=== PATIENT | male | born 1950 | race Caucasian/White ===

== ENCOUNTER → 2016-11-08 | Outpatient (REF) | payer MEDICARE ==
[~2016-11-08] MED LIST: AMOX500C PO; ASPI325T PO; CARV6.25 PO; CIPR500T89 PO; CLOP75TA2 PO; CO Q100C10 PO; COLA100C PO; ECOT81TA2 PO; FISH120012 PO; FISH5CAP PO; FLAG500T PO; LIPI80TA PO; LISI-538 PO; LISI40TAB PO; MIRA3350 PO; NITROPATCH PO; OCUVTAB PO; OSTETAB3 PO; OXYC5CAP28 PO; TRAZ50TA4 PO; TRIC145T PO; VITAMIN B2 PO; ZYLO300T4 PO; tumeric PO
[2016-11-13 00:06] LABS: Lyme Disease IgG/IgM Antibodie <0.91 ISR (0.00-0.90); Lyme Disease IgM Ab Quantitati <0.80 index (0.00-0.79)
== END ==
LOC: M SFHCPLAZ 13:43
PROVIDERS: ATTEND Internal Medicine
DX: M35.3 Polymyalgia rheumatica (principal)
CPT/HCPCS: 36415; 86038; 86200; 86431; 86617; G0463

== ENCOUNTER → 2017-03-19 | Outpatient (CLI) | payer MEDICARE ==
[~2017-03-19] MED LIST changes: -COLA100C PO; +COLA100C3 PO; -ECOT81TA2 PO; +ECOT81TA5 PO; +NITR0.2D TD; +PRED1TABL PO; +VITA100T98 PO
[2017-03-19 08:40] LABS: BASO % 0.6 % (0.0-1.0); EOS # 0.1 K/mm3 (0.0-0.50); EOS % 2.2 % (0.0-3.0); LYMPH # 1.7 K/mm3 (1.5-4.5); LYMPH % 31.6 % (24.0-44.0); MEAN CORPUSCULAR HEMOGLOBIN 33.6 pg (27.0-33.0); MEAN CORPUSCULAR HGB CONC 32.8 g/dl (32.0-36.5); MEAN CORPUSCULAR VOLUME 102.4 fl (80.0-96.0); MONO # 0.4 K/mm3 (0.0-0.8); MONO % 8.1 % (0.0-5.0); NEUTROPHILS % 54.9 % (36.0-66.0); RED CELL DISTRIBUTION WIDTH 14.9 % (11.5-14.5); WHITE BLOOD COUNT 5.4 K/mm3 (4.0-10.0)
== END ==
LOC: M LAB 08:16
PROVIDERS: ATTEND Internal Medicine
DX: M35.3 Polymyalgia rheumatica (principal)

== ENCOUNTER → 2017-03-19 | Outpatient (CLI) | payer MEDICARE ==
--- NOTE | 2017-03-19 17:38 | REP ---
MRI CERVICAL SPINE WITHOUT CONTRAST: 03/19/2017: Clinical history: Neck pain. Technique: Sagittal T1, T2 and STIR images with axial T1-T2 sequences provided. Clinical history: Headaches, increased neck pain. Findings: Sagittal images show fusion at C3-4. Partial fusion at C2-3, C5-6 and C6-7 disc space narrowing at C4-5 and C7-T1. There are anterior osteophytes greatest at C4-5 but present at all levels from C3-4 through C7-T1. Craniocervical junction shows ample subarachnoid space with no cerebellar tonsillar ectopia. Cervical cord shows no intrinsic signal abnormality, syrinx, atrophy or mass. At C2-3 there is a left paracentral left lateral disc osteophyte complex abutting the ventral cord surface along the ventral lateral aspect. The cross-sectional area of the canal was adequate. The right foramen is ample. The left foramen shows some stenosis due to combined factors. At 3-4. There is also posterior static ridging with left paracentral left lateral disc osteophyte complex abutting and flattening the ventral cord surface on the left side causing some central canal stenosis and foraminal encroachment on the left where the right foramen is adequate. At C4-5 posterior osteophytic ridging with associated disc bulge causes a tight spinal stenosis with the AP canal diameter only 7 mm and no subarachnoid space visible on there is foraminal encroachment bilaterally due to uncinate spurring and facet arthropathy. At C5-6 posterior osteophytic ridging abutting the ventral cord surface and flattening it causing mild central canal stenosis. Foramina adequate on the left marginally adequate on the right. At C6-C7 there is posterior osteophytic ridging bulging and indenting the ventral cord surface causing some central canal stenosis with an AP canal diameter of only 7.8 mm. Foramina are ample on the left and mildly stenotic on the right. At C7-T1 posterior osteophytic ridging with associated disc bulge flattening ventral cord surface causing mild central canal stenosis. Foramina adequate. Impression: 1. Multilevel degenerative disc disease with disc osteophyte complexes at multiple levels with spinal stenosis from C2-3 through C7-T1, greatest at C4-5. Foraminal encroachment at multiple levels bilaterally. No compression deformity. Multiple fused and partially fused levels as described. No myelomalacia. Signed by Amanuel Ramirez MD 03/20/2017 10:09 A
== END ==
LOC: M RAD 14:16
PROVIDERS: ATTEND Internal Medicine
DX: M35.3 Polymyalgia rheumatica (principal); M50.30 Other cervical disc degeneration, unspecified cervical region; M99.71 Connective tissue and disc stenosis of intervertebral foramina of cervical region

== ENCOUNTER 2017-03-26 17:53 | Inpatient (IN) | payer MEDICARE ==
[~2017-03-26] VITALS: Ht 177.8 cm; Wt 127.2 kg
[~2017-03-26 17:53] MED LIST changes: -NITR0.2D TD; -PRED1TABL PO; -VITA100T98 PO
[2017-03-26] MEDS ORDERED: PRED1TABL PO (18:16)
[2017-03-26] MEDS ORDERED: NS 1,000 ML IV ONE ×3 (19:45→21:45)
[2017-03-26 19:55] LABS: ALBUMIN 3.6 GM/DL (3.2-5.2); ALBUMIN/GLOBULIN RATIO 1.06 (1.00-1.93); BILIRUBIN,DIRECT 0.4 MG/DL (0.0-0.2); BILIRUBIN,TOTAL 1.5 MG/DL (0.2-1.0); CREATININE FOR GFR 1.51 MG/DL (0.70-1.30); GLOMERULAR FILTRATION RATE 49.2 (>49)
[2017-03-26 20:03] LABS: MEAN CORPUSCULAR HEMOGLOBIN 33.8 pg (27.0-33.0); MEAN CORPUSCULAR VOLUME 99.5 fl (80.0-96.0); PLATELET COUNT, AUTOMATED 118 k/mm3 (150-450); RED CELL DISTRIBUTION WIDTH 14.4 % (11.5-14.5); WHITE BLOOD COUNT 10.5 K/mm3 (4.0-10.0)
[2017-03-26] MEDS ORDERED: ISOVUE-370 76% 100ML VIAL (Q9967) As Ordered ONE (20:13)
[2017-03-26 20:28] LABS: VENOUS BASE EXCESS 1.3 (-2.0-2.0); VENOUS O2 SATURATION 43.3 % (60.0-80.0); VENOUS PARTIAL PRESSURE CO2 45.2 mmHg (38.0-50.0); VENOUS STANDARD HCO3 24.3 MEQ/L; VENOUS TOTAL CO2 28.1 MEQ/L (24.0-28.0)
[2017-03-26 20:29] LABS: BANDS 4 % (< 11); BASOPHILS 1 % (0-4)
--- NOTE | 2017-03-26 22:00 | REPUSA ---
CLINICAL HISTORY: Back pain and shortness of breath. TECHNIQUE: CT chest with IV contrast. COMPARISON: No pertinent prior studies are available at this time. CT CHEST WITH CONTRAST: Pulmonary arteries: Patent, without emboli. Lungs: No pneumothorax, infiltrate, masses or effusion. Heart: Normal size. No significant effusion. Aorta: Normal caliber, without aneurysm or dissection. Mediastinum and delilah: No lymphadenopathy. Bony thorax: Median sternotomy. Thoracic spondylosis Limited upper abdomen: No acute findings. IMPRESSION: No evidence of pulmonary embolism. No acute thoracic process.
[2017-03-26 22:08] LABS: MAGNESIUM LEVEL 1.6 MG/DL (1.8-2.4)
--- NOTE | 2017-03-26 22:10 | REPUSA ---
CLINICAL HISTORY: Hypotension and vomiting. TECHNIQUE: CT abdomen and pelvis following administration of IV contrast. COMPARISON: No pertinent prior studies are available at this time. CT ABDOMEN WITH CONTRAST: Lung bases: No lung base infiltrate or effusion. Liver: 20.6 cm length. No intrahepatic ductal dilation. Gallbladder: Normally distended. Small layering stones. Pancreas: No pancreatic duct dilation. Bowel loops: Nondistended. Spleen: 11.7 cm length. Adrenals: Normal size. Kidneys: No stones or hydronephrosis. Multiple left renal cysts, largest measuring 7 and 6 cm each Aorta: Atherosclerotic irregularity, with infrarenal ectasia measuring up to 2.9 cm. Peritoneum: No free air. Anterior abdominal wall: Multiple fatty omental hernias, without containing bowel. Lumbar spine: Degenerative spondylotic changes at multiple levels. Disc osteophyte complexes at L2-3 and L3-4 produce central canal stenosis. CT PELVIS WITH CONTRAST: Colon: Multiple colonic diverticula without evidence of diverticulitis. Appendix: Normal appendix is seen. Bladder: Normally distended. Pelvic organs: Prostate 4.7 cm diameter. Peritoneum: No fluid. Hips: Right hip arthroplasty. Inguinal: Small fatty left inguinal hernia. IMPRESSION: 1. Cholelithiasis without CT evidence of cholecystitis. 2. Borderline hepatosplenomegaly. Correlate with hepatic enzymes. 3. Aortic atherosclerosis, with tortuosity and ectasia measuring up to 2.9 cm. 4. Multiple anterior abdominal wall fatty omental hernias, without containing bowel. 5. Diverticulosis without convincing evidence of diverticulitis.
[2017-03-26] MEDS ORDERED: LR 1,000 ML IV ONE (22:45)
[2017-03-27] MEDS ORDERED: VITA100T98 PO (03:35)
[2017-03-27] MEDS ORDERED: PRED1TABL PO (03:35)
[2017-03-27] MEDS ORDERED: NITR0.2D TD (03:35)
[2017-03-27 04:00] VITALS: BP 120/77; PULSE 66
[2017-03-27] MEDS ORDERED: MIRALAX *UNIT DOSE* 17GM PACKET PO PRN (05:45)
--- NOTE | 2017-03-27 06:01 | HPE ---
DATE OF ADMISSION: 03/27/2017 REASON FOR ADMISSION: Weakness, hypotension. PRIMARY CARE PROVIDER: Dr. Peng METAL WEATHER STRIPPER: Dr. Butler HISTORY OF PRESENT ILLNESS: The patient is a 66-year-old male with a history of obstructive sleep apnea on C-PAP, diabetes, hypertension, coronary artery disease, diverticulitis and gout, presented to the emergency room complaining of weakness and sweats and chills and pain in his back. He had nausea and two episodes of vomiting at home and then one in the emergency room. He denies any chest pain or shortness of breath. In the emergency room, the patient underwent CT of the chest, as well as abdomen and pelvis. CT of the chest showed no evidence of pulmonary emboli (PE) and no acute thoracic process. CT abdomen and pelvis were also negative, showing a cholelithiasis without cholecystitis, borderline hepatosplenomegaly, aortic arthrosclerosis with tortuosity and ectasia measuring 2.9, diverticulosis without diverticulitis. The patient was also found to have low blood pressure as low as 70/46. He was given 2 liters of fluid boluses. Echocardiogram was also ordered and done STAT in the emergency room, read by Dr. Torres, who was steam conditioning operator tonight. He commented that the patient had aortic stenosis and that it has worsened slightly from prior echocardiogram, but he did not feel like the patient needed to be transferred, but rather he could be admitted and be observed for his hypotension and symptoms. By the time I examined the patient, he had no more symptoms. He denied any back pain. Denied any shortness of breath or chest pain. He had no nausea, no vomiting, no chills, no fevers. He had already received fluid boluses, lactated Ringer's. His blood pressure at the time of my exam was 130/82 with a pulse of 72. He was afebrile, temperature of 98.3, saturating 96% on room air. REVIEW OF SYSTEMS: 12-point review of systems was obtained all of which was negative except for those mentioned above. PAST MEDICAL HISTORY: Significant for obstructive sleep apnea on C-PAP, type 2 diabetes, hypertension, coronary artery disease (CAD), diverticulitis, gout PAST SURGICAL HISTORY: Significant for cabbage x2 in 1988 and 1992, stents in 2001, right rotator cuff surgery, right hip surgery and left knee surgery. ALLERGIES: None. SOCIAL HISTORY: The patient denies any tobacco, drinks occasionally. Lives at home with his . HOME MEDICATIONS INCLUDE: - allopurinol 3 mg daily - aspirin 81 mg daily - Lipitor 80 mg at night - carvedilol 6.25 mg by mouth twice a day -CoQ10 100 mg daily - Colace 100 mg daily - fish oil 1400 mg daily - lisinopril 20 mg daily - multivitamin one tablet by mouth daily - Nitro-Dur 0.2 mg transdermal daily as needed for angina - MiraLax 17 grams by mouth twice a day for constipation - prednisone 5 mg daily and 4 mg at night - vitamin D 100 mg by mouth daily - trazodone 50 mg at bedtime. PHYSICAL FINDINGS: VITALS: Temperature 98.30, pulse 73, respiratory rate 20, blood pressure is 143/92, pulse of 97% on room air. HEENT: Pupils equal round react to light accommodation. NECK: Supple. No jugular venous distension (JVD). LUNGS: Clear to auscultation bilaterally. CARDIAC: 3/6 soft systolic murmur appreciated. ABDOMEN: Soft, nontender, nondistended. EXTREMITIES: No clubbing, cyanosis or edema. LABORATORY FINDINGS: Sodium 141, potassium 4, chloride 106, BUN 29, creatinine 1.51, lactic acid 1.7, magnesium 1.6, troponin 0.05, white blood count (WBC) 7.5, hemoglobin 13.8, hematocrit 40.6, platelet count 118. Urinalysis showed 3+ leukoesterase and 65 white blood cells (WBCs), negative for bacteria, pH on ZDG was 7.39. ASSESSMENT/PLAN: 1. Hypertension, unknown etiology at this time, but has resolved. The patient's blood pressure after receiving total of four fluid boluses is now up to 143/92. We will hold the patient's home antihypertensive medications per Dr. Torres's recommendation. The patient is normally on lisinopril and Coreg and will continue to monitor the patient on telemetry CT ruled out aortic dissection, thoracic and abdominal 2. Back pain resolved, unknown etiology at this time. 3. Hypomagnesemia. We will replace and recheck. 4. Aortic stenosis per echocardiogram. The patient has moderate to severe aortic stenosis. He follows up with Dr. Butler normally. We will consult, Dr. Torres agreed has agreed to the see the patient in consultation. 5. History of gout. Continue the patient's home medication. 6. Coronary artery disease status post cabbage and stenting. 7. History of diverticulitis. CT today showed no evidence of diverticulitis 8. Chronic obstructive pulmonary disease (COPD). The patient is normally on C-PAP. We will continue while in the hospital. The patient will be seen by Dr. Marcum in the morning.
[2017-03-27] MEDS ORDERED: MAG SULF 1GM/100ML (MAG RUN) 1 GM in APPROPRIATE DILUENT 1 EA IV ONE (07:30)
[2017-03-27 07:50] LABS: BASO % 0.1 % (0.0-1.0); EOS % 0.4 % (0.0-3.0); LARGE UNSTAINED CELL # 0.1 K/mm3 (0.0-0.4); LYMPH # 1.1 K/mm3 (1.5-4.5); LYMPH % 8.2 % (24.0-44.0); MEAN CORPUSCULAR HGB CONC 33.9 g/dl (32.0-36.5); MEAN CORPUSCULAR VOLUME 100.3 fl (80.0-96.0); MONO # 0.5 K/mm3 (0.0-0.8); MONO % 3.7 % (0.0-5.0); NEUTROPHILS # 10.4 K/mm3 (1.8-7.7); NEUTROPHILS % 86.6 % (36.0-66.0); PLATELET COUNT, AUTOMATED 102 k/mm3 (150-450); WHITE BLOOD COUNT 12.1 K/mm3 (4.0-10.0)
[2017-03-27 08:00] VITALS: BP 105/60
--- NOTE | 2017-03-27 08:10 | ECGEPIP ---
Stationary ECG Study [facility] - ED Test Date: 2017-03-26 Pat Name: HEIKE GARRETT Department: Room: [facility] Gender: M Grinder Hand: ct : 1950 Requested By: Jayjay Bear Order Number: [id number] Reading MD: Angela Leigh Measurements Intervals [place] Rate: 99 P: 48 [place]: 212 QRS: 1 QRSD: 114 T: 236 QT: 337 QTc: 433 Interpretive Statements SINUS RHYTHM WITH FIRST DEGREE AV BLOCK WITH FREQUENT VENTRICULAR PREMATURE COMPLEXES INFERIOR MYOCARDIAL INFARCTION, OF INDETERMINATE AGE MODERATE T-WAVE ABNORMALITY, CONSIDER LATERAL ISCHEMIA LVH INCREASED RATE 05/29/14 Electronically Signed On 03-27-2017 8:09:53 EDT by Angela Leigh
--- NOTE | 2017-03-27 08:11 | ECGEPIP ---
Stationary ECG Study [facility] - ED Test Date: 2017-03-26 Pat Name: HEIKE GARRETT Department: Room: [facility]02 Gender: M Change House Attendant: shayna : 1950 Requested By: MAILE Lezama Order Number: [id number] Reading MD: Angela Leigh Measurements Intervals [place] Rate: 89 P: 49 [place]: 218 QRS: -2 QRSD: 114 T: 238 QT: 336 QTc: 409 Interpretive Statements SINUS RHYTHM WITH FIRST DEGREE AV BLOCK INFERIOR MYOCARDIAL INFARCTION, OF INDETERMINATE AGE MODERATE T-WAVE ABNORMALITY, CONSIDER LATERAL ISCHEMIA DECREASED RATE 03/26/17 Electronically Signed On 03-27-2017 8:11:43 EDT by Angela Leigh
[2017-03-27 08:16] LABS: ALBUMIN 2.7 GM/DL (3.2-5.2); ALBUMIN/GLOBULIN RATIO 0.75 (1.00-1.93); BILIRUBIN,TOTAL 1.4 MG/DL (0.2-1.0); CALCIUM LEVEL 8.1 MG/DL (8.8-10.2); CREATININE FOR GFR 1.37 MG/DL (0.70-1.30); MAGNESIUM LEVEL 1.8 MG/DL (1.8-2.4); POTASSIUM SERUM 3.9 MEQ/L (3.5-5.1); TOTAL PROTEIN 6.3 GM/DL (6.4-8.2)
[2017-03-27] MEDS: ASPIRIN 81 MG ENTERIC TAB PO SCH (09:40)
[2017-03-27] MEDS: DOCUSATE SODIUM 100 MG CAP PO SCH (09:40)
[2017-03-27] MEDS: predniSONE 5 MG TAB PO SCH (09:40)
[2017-03-27] MEDS: OCUVITE 1 TAB PO SCH (10:29)
[2017-03-27] MEDS: ALLOPURINOL 300 MG TAB PO SCH (10:29)
[2017-03-27 12:00] VITALS: BP 141/80
[2017-03-27 16:10] VITALS: BP 107/52
--- NOTE | 2017-03-27 17:03 | IPNPDOC ---
Text Note Date of Service The patient was seen on 03/27/17. NOTE Subjective: Patient is a 66 year old male with a PMHx of HANNY on CPAP, DM2, HTN, CAD s/p CABG (1988, 1992) and stent (2001, 2012), Diverticulosis and Gout who presented to the ER with weakness, sweats, nausea / vomiting and sharp back pain between his shoulder blades. He denied SOB or chest pain. Patient received a CTA chest / abdomen / pelvis that was negative for any acute pathology (no PE or aortic dissection). He was found to be hypotensive in the ER and received 2 L IV fluid hydration and his BP responded appropriately. A STAT echocardiogram was ordered in the ER; it revealed that there was worsening of his aortic stenosis. Upon initial evaluation by the hospitalist, the patient's blood pressure had normalized and his symptoms resolved. Patient was seen and examined at the bedside. Currently he has no symptoms and denies any problems. Objective: Vitals (See below) General: Lying in bed, no acute distress, comfortable, AAOx3 HEENT: NC, AT CVS: RRR, +S1S2, +Systolic murmur Lungs: Fair air entry b/l, -w/r/r Abdomen: Soft, ND, NT, +BSx4 Extremities: +PPx4, - Edema, - Calf tenderness Assessment and plan: 1. s/p Hypotension - possibly 2/2 cardiac etiology - 2/2 severe aortic stenosis , possibly 2/2 hypovolemia - Presented with nausea, vomiting, sweating, chills, and pain between his shoulder blades - Physical currently does not reveal any acute changes - BP has normalized after IV fluid hydration - CTA chest / abdomen / pelvis: no acute pathology (no PE or dissection) - EKG with ischemic changes in lateral leads; no prior EKGs available for comparison - ECHO complete; official report pending - Will trend cardiac enzymes; have been mildly elevated at 0.36 - Will continue to hold Lisinopril and Carvedilol - Cardiology (Dr. Torres) on consult; case was discussed by my college (Dr. Calvillo) and will be seen today 2. Leukocytosis and fever - possibly 2/2 UTI - Fever of 100.7 noted - UA consistent with infection - Urine culture pending - Will order blood cultures - Start Ceftriaxone (Day #0) 3. Hypomagnesemia - s/p supplementation 4. Aortic stenosis 5. Gout 6. CAD s/p CABG and Stents 7. Hx of Diverticulitis 8. HANNY on CPAP - allow home CPAP use 9. DVT prophylaxis - c/w SCDs VS,Fishbone, I+O VS, Fishbone, I+O Laboratory Tests 03/26/17 18:57 Red Blood Count 4.08 L, Mean Corpuscular Volume 99.5 H, Mean Corpuscular Hemoglobin 33.8 H, Mean Corpuscular Hemoglobin Concent 34.0, Red Cell Distribution Width 14.4 03/27/17 07:39 Red Blood Count 3.41 L, Mean Corpuscular Volume 100.3 H, Mean Corpuscular Hemoglobin 34.0 H, Mean Corpuscular Hemoglobin Concent 33.9, Red Cell Distribution Width 15.0 H, Neutrophils (%) (Auto) 86.6 H, Lymphocytes (%) (Auto ) 8.2 L, Monocytes (%) (Auto) 3.7, Eosinophils (%) (Auto) 0.4, Basophils (%) ( Auto) 0.1, Neutrophils # (Auto) 10.4 H, Lymphocytes # (Auto) 1.1 L, Monocytes # (Auto) 0.5, Eosinophils # (Auto) 0.0, Basophils # (Auto) 0.0, Calcium Level 8.1 L, Aspartate Amino Transf (AST/SGOT) 16, Alanine Aminotransferase (ALT/SGPT) 23 , Total Creatine Kinase 146, Alkaline Phosphatase 49, Total Bilirubin 1.4 H, Total Protein 6.3 L, Albumin 2.7 #L Vital Signs Date Time Temp Pulse Resp B/P (MAP) Pulse Ox O2 Delivery O2 Flow Rate FiO2 03/27/17 16:10 100.7 69 18 107/52 (70) 98 Room Air 03/27/17 08:00 2.0 I&O- Last 24 Hours up to 6 AM 03/27/17 06:00 Intake Total 4000 ml Output Total 300 ml Balance 3700 ml DMITRY BASS MD March 27, 2017 17:03
[2017-03-27] MEDS: predniSONE 1 MG TAB PO SCH (19:08)
[2017-03-27] MEDS: ATORVASTATIN 20 MG TAB PO SCH (19:08)
[2017-03-27] MEDS: cefTRIAXone SOD 1 GM in D5W MINI-BAG PLUS 50 ML IV SCH (19:09)
[2017-03-27 20:00] VITALS: BP 104/58
[2017-03-27] MEDS: traZODone 50 MG TAB PO SCH (20:57)
[2017-03-27] MEDS: ACETAMINOPHEN TAB 650MG DOSE (2X325MG) PO PRN (20:57)
[2017-03-28] VITALS (7 sets, daily range): BP systolic 117–137; BP diastolic 67–81
[2017-03-28 05:18] LABS: MEAN CORPUSCULAR HEMOGLOBIN 33.5 pg (27.0-33.0); MEAN CORPUSCULAR HGB CONC 33.5 g/dl (32.0-36.5); MEAN CORPUSCULAR VOLUME 100.1 fl (80.0-96.0); RED CELL DISTRIBUTION WIDTH 14.6 % (11.5-14.5)
[2017-03-28 05:38] LABS: ALBUMIN 2.8 GM/DL (3.2-5.2); ALBUMIN/GLOBULIN RATIO 0.76 (1.00-1.93); ALKALINE PHOSPHATASE 51 U/L (45-117); ALT/SGPT 22 U/L (12-78); ANION GAP 6 MEQ/L (8-16); AST/SGOT 15 U/L (15-37); BLOOD UREA NITROGEN 24 MG/DL (7-18); CALCIUM LEVEL 8.7 MG/DL (8.8-10.2); CARBON DIOXIDE LEVEL 28 MEQ/L (21-32); CHLORIDE LEVEL 110 MEQ/L (98-107); CREATININE FOR GFR 1.25 MG/DL (0.70-1.30); GLOMERULAR FILTRATION RATE > 60.0 (>49); GLUCOSE, FASTING 97 MG/DL (80-110); MAGNESIUM LEVEL 2.1 MG/DL (1.8-2.4); POTASSIUM SERUM 3.8 MEQ/L (3.5-5.1); SODIUM LEVEL 144 MEQ/L (136-145); TOTAL PROTEIN 6.5 GM/DL (6.4-8.2)
[2017-03-28] MEDS: predniSONE 5 MG TAB PO SCH (09:31)
[2017-03-28] MEDS: ALLOPURINOL 300 MG TAB PO SCH (09:31)
[2017-03-28] MEDS: DOCUSATE SODIUM 100 MG CAP PO SCH (09:31)
[2017-03-28] MEDS: ASPIRIN 81 MG ENTERIC TAB PO SCH (09:31)
[2017-03-28] MEDS: OCUVITE 1 TAB PO SCH (09:32)
[2017-03-28] MEDS: ACETAMINOPHEN TAB 650MG DOSE (2X325MG) PO PRN (13:58)
--- NOTE | 2017-03-28 15:22 | IPNPDOC ---
Text Note Date of Service The patient was seen on 03/28/17. NOTE Subjective: Patient is a 66 year old male with a PMHx of HANNY on CPAP, DM2, HTN, CAD s/p CABG (1988, 1992) and stent (2001, 2012), Diverticulosis and Gout who presented to the ER with weakness, sweats, nausea / vomiting and sharp back pain between his shoulder blades. He denied SOB or chest pain. Patient received a CTA chest / abdomen / pelvis that was negative for any acute pathology (no PE or aortic dissection). He was found to be hypotensive in the ER and received 2 L IV fluid hydration and his BP responded appropriately. A STAT echocardiogram was ordered in the ER; it revealed that there was worsening of his aortic stenosis. Upon initial evaluation by the hospitalist, the patient's blood pressure had normalized and his symptoms resolved. Patient was seen and examined at the bedside. He is feeling well currently without any events overnight. Objective: Vitals (See below) General: Lying in bed, no acute distress, comfortable, AAOx3 HEENT: NC, AT CVS: RRR, +S1S2, +Systolic murmur Lungs: Fair air entry b/l, -w/r/r Abdomen: Soft, ND, NT, +BSx4 Extremities: +PPx4, - Edema, - Calf tenderness Assessment and plan: 1. s/p Hypotension - possibly 2/2 cardiac etiology - 2/2 severe aortic stenosis , possibly 2/2 hypovolemia - Presented with nausea, vomiting, sweating, chills, and pain between his shoulder blades - Physical currently does not reveal any acute changes - BP has normalized after IV fluid hydration - CTA chest / abdomen / pelvis: no acute pathology (no PE or dissection) - EKG with ischemic changes in lateral leads; no prior EKGs available for comparison - ECHO complete; official report pending - Cardiac enzymes peaked at 0.36; but have trended down since then - HOLD Lisinopril - Will reintroduce low dose carvedilol with holding parameters - Discussed with Cardiology (Dr. Torres) who will look into outpatient records; will advise of any additional information 2. s/p Leukocytosis and fever - possibly 2/2 UTI - Fever of 100.7 noted - UA consistent with infection - Urine culture and blood culture results pending - Start Ceftriaxone (Day #1) 3. s/p Hypomagnesemia 4. Aortic stenosis - STAT echocardiogram done in the ER was noted to have worsened - official report pending 5. Gout - c/w Allopurinol and Prednisone 6. CAD s/p CABG and Stents - c/w ASA, Atorvastatin, Carvedilol 7. Depression - c/w Trazodone 8. Hx of Diverticulitis 9. HANNY on CPAP - allow home CPAP use 10. DVT prophylaxis - c/w SCDs VS,Fishbone, I+O VS, Fishbone, I+O Laboratory Tests 03/28/17 04:58 Red Blood Count 3.47 L, Mean Corpuscular Volume 100.1 H, Mean Corpuscular Hemoglobin 33.5 H, Mean Corpuscular Hemoglobin Concent 33.5, Red Cell Distribution Width 14.6 H, Calcium Level 8.7 L, Aspartate Amino Transf (AST/SGOT ) 15, Alanine Aminotransferase (ALT/SGPT) 22, Total Creatine Kinase 110, Alkaline Phosphatase 51, Total Bilirubin 1.0, Total Protein 6.5, Albumin 2.8 L Vital Signs Date Time Temp Pulse Resp B/P (MAP) Pulse Ox O2 Delivery O2 Flow Rate FiO2 03/28/17 12:00 98.1 79 18 137/81 (99) 98 Room Air 03/27/17 08:00 2.0 I&O- Last 24 Hours up to 6 AM 03/28/17 06:00 Intake Total 1155 ml Output Total 1100 ml Balance 55 ml DMITRY BASS MD March 28, 2017 15:22
[2017-03-28] MEDS: ATORVASTATIN 20 MG TAB PO SCH (17:46)
[2017-03-28] MEDS: cefTRIAXone SOD 1 GM in D5W MINI-BAG PLUS 50 ML IV SCH (17:46)
[2017-03-28] MEDS: predniSONE 1 MG TAB PO SCH (17:46)
[2017-03-28] MEDS: traZODone 50 MG TAB PO SCH (20:08)
[2017-03-28] MEDS: CARVedilol 3.125 MG TAB PO SCH (20:09)
--- NOTE | 2017-03-28 22:31 | CR ---
DATE OF CONSULTATION: 03/28/2017 REFERRING PROVIDER: Dr. Marcum REASON FOR THE CONSULT: Status post hypotensive episodes, history of coronary artery disease and coronary artery bypass graft (CABG), percutaneous transluminal coronary angioplasty (PTCA)/stent. PRIMARY CARE PROVIDER: Dr. Peng. PRIMARY CALL CENTER SUPPORT REPRESENTATIVE: Dr. Simin Butler HISTORY OF THE PRESENT ILLNESS: A 66-year-old male who has been fairly well but early this week, he felt that he was a little off. On the day he came to the hospital, he developed diaphoresis and nausea, generalized weakness, dizziness and back pain between the shoulder blades. He came to the emergency room (ER) for further evaluation and upon arrival, his vital signs revealed a blood pressure of 122/77 with a pulse of 70, and his oxygen saturation was 100% with a temperature of 98.3 degrees Fahrenheit but it seems that 1-2 hours later while in the hospital, he became hypotensive and the lowest blood pressure recorded was 70/44. Prior to his arrival at the ER, he vomited 3-5 times. A stat echocardiogram was done. There was no pericardial effusion. He was found to have a low grade fever, and he was admitted for further management and monitoring. His blood pressure responded to intravenous (IV) fluid challenge. The patient has been stable since hospitalization; both his lisinopril/angiotensin-converting enzyme (JENIFER) inhibitor and his beta jennifer/carvedilol were discontinued. His blood pressure has been stable, but he continues to have a low grade fever. Initially I was consult, but the plan was to be discharged today and cardiology input was called. When I saw Mr. Andrew Orta, in his room, he was sitting up in bed, in no acute distress at rest and his was at bedside. He stated that earlier today, he had one episode of chest pain associated with palpitations, and at that time, he was feeling nervous. Since then, he has been stable. According to the nursing staff, he has occasional isolated PVCs on telemetry. This afternoon, he has been walking, and he denies any chest pain. He did two loops around the nursing station while I was at the hospital, and he denies any chest pain, and there was no shortness of breath and there was no significant PVCs noted on the monitor. He has no pedal edema, orthopnea, and there was no syncope or near syncope. Today, again, he has some low grade fever associated with chills. He has no cough or hemoptysis. He has not been vomiting. He has no nausea. He has no dysuria, polyuria or hematuria. His labs on admission revealed an abnormal UA with 65 white blood cells (WBCS), and he was positive at 3+ for leukocyte esterase. However, urine culture as well as blood culture are pending. He has no focal manifestation. He has a past medical history positive for coronary artery disease with coronary artery bypass graft in 1988 and 1992, both at [facility] in [place], [place]. In July of 2013, he had PTCA with two drug-eluting stents to a diagonal branch. At that time, SALAZAR was found to be patent. A nuclear stress test done in July of 2016 revealed a fixed defect at the apex and the inferior huertas of the left ventricle, consistent with prior infarct. Left ventricular ejection fraction (LVEF) was reported to be 53%. He also has a history of hypertension, hyperlipidemia, diabetes mellitus, obesity and sleep apnea, arthritis and gout, diverticulitis. After having surgery in July of 2016, it was reported that he had one episode of paroxysmal atrial fibrillation but this was never confirmed. There is no history of cerebrovascular accident, lung disease, thyroid disorders. He does have some underlying chronic kidney disease. He also has a history of aortic valve disease with aortic stenosis and regurgitation. PAST SURGICAL HISTORY: Positive for coronary artery bypass graft in 1988 and 1992 at [facility], right shoulder surgery, right hip surgery in 2013. MEDICATION PRIOR TO COMING TO THE HOSPITAL: - aspirin 81 mg by mouth daily - allopurinol 300 mg by mouth daily - CoQ10 10 mg by mouth daily - vitamin B complex one tablet by mouth daily - fish oil one tablet by mouth daily - atorvastatin 80 mg by mouth daily - carvedilol 6.25 mg by mouth twice a day - nitroglycerin patch 0.2 mg, 12 hours on and 12 hours off but as needed - prednisone for fibromyalgia - Ocuvite multivitamin one tablet by mouth daily - Osteo Bi-Flex one tablet by mouth daily for arthritis CURRENT MEDICATIONS: - carvedilol 3.125 mg by mouth twice a day, to be started this evening - trazodone 50 mg by mouth nightly - atorvastatin 80 mg by mouth daily - prednisone 9 mg by mouth daily - ceftriaxone 1 gram by mouth daily - Tylenol 650 mg every 4 hours as needed for mild pain or fever - allopurinol 300 mg by mouth daily - aspirin 81 mg by mouth daily - docusate sodium 100 mg by mouth daily - Ocuvite one tablet by mouth daily - MiraLAX one package daily FAMILY HISTORY: Noncontributory. SOCIAL HISTORY: The patient lives with his , and he never smoked. There is no report of ethyl alcohol (ETOH) abuse. ALLERGIES: No known drug allergies. ADVANCED DIRECTIVES: The patient is a FULL CODE. PHYSICAL EXAMINATION: The patient is alert and oriented, in no acute distress at rest and very pleasant. His vital signs, and I took the blood pressure myself at bedside, revealed a blood pressure of 130/70 and prior to that, it was 136/77 with a pulse of 61, respirations 18 and his maximum temperature was 98.1 degrees Fahrenheit with an oxygen saturation of 96% on room air. Examination of the head, ears, eyes, nose and throat: Atraumatic. The fundus examination was not done. Neck is supple, no jugular venous distention (JVD). The lungs were clear bilaterally on auscultation without any wheezing or crackles. The heart examination revealed normal S1 and S2 without gallops. The point of maximum impulse (PMI) is slightly displaced inferiorly and laterally. There is no rub. There is a systolic murmur, grade 2/6, over the precordium, lateral at the base of the heart/aortic valve area. Abdomen is soft and nontender. Bowel sounds are active. Extremities reveal no pedal edema. Neurologic examination grossly was negative for focal deficit. LABORATORY: CBC done today revealed a WBC of 9.0, hemoglobin 11.6, hematocrit 34.7 and platelets 101,000. CBC on admission revealed a WBC of 10.5, hemoglobin 13.8, hematocrit 40.6 and platelets 118,000. BMP on admission revealed a sodium of 141, potassium 4.0, chloride 106, CO2 27, BUN 29, creatinine 1.51, GFR 49.2, fasting glucose 95, calcium 9.0. Serum magnesium was 1.6. Liver enzymes on admission revealed a total bilirubin of 1.5, direct bilirubin 0.4, AST 18, ALT 28, alkaline phosphatase 63, total protein 7.0, albumin 3.6. BMP done this morning, 03/28/2017, revealed a sodium of 144, potassium 3.8, chloride 110, CO2 28, BUN 24, creatinine 1.25, GFR more than 60, fasting glucose 97 and calcium 8.7. Serum magnesium is 2.1. Liver enzymes revealed a total bilirubin of 1.0, AST 15, ALT 22, alkaline phosphatase 51, total protein 6.5 and albumin 2.8. Serum troponin on admission initially was 0.05, then increased up to 0.28, 0.36, 0.27, 0.19, and 0.17, respectively number one up to number six. VBG on 03/26/2017 revealed a pH of 7.39, pCO2 45.2, pO2 24.0, bicarbonate 26.7 and oxygen saturation was 43%. Urinalysis revealed +1 blood, +3 leukocyte esterase and [address] angio of the chest done on admission, 03/26/2017, revealed no evidence of pulmonary embolism. No acute thoracic process. There was no pneumonia or pleural effusion. No aneurysm. CT of the abdomen and pelvis was positive for cholelithiasis without evidence of cholecystitis, borderline hepatosplenomegaly, atherosclerosis of the aorta with minimal ectasia noted of 2.9 cm, multiple anterior abdominal wall fatty omental hernias without containing bowel, diverticulosis without evidence of diverticulitis. Electrocardiogram on 03/26/2017 revealed normal sinus rhythm with mild intraventricular conduction delay (IVCD), possible prior inferior wall infarct, and nonspecific ST-T abnormalities, as well as isolated PVCs. There is borderline first degree AV block. Repeat electrocardiogram done on the same day and about 30 minutes to 1 hour later revealed normal sinus rhythm with first degree AV block, moderate IVCD and nonspecific ST-T abnormalities noted . Could not rule out a prior inferior wall infarct. No significant changes, but no PVCs now noted. IMPRESSION: A 66-year-old male with a history of coronary artery disease and underlying coronary artery bypass graft twice, and PTCA/drug-eluting stents (YAMILETH), mild left ventricular systolic dysfunction, valvular heart disease involving the aortic valve, hypertension, hyperlipidemia and obesity and sleep apnea, as well as a questionable history of paroxysmal atrial fibrillation, was admitted with atypical chest pain and was found to be hypotensive, responded to IV fluids. He also presented with a low grade fever, which he continued to have. His serum troponin is minimally abnormal, and that could be related to his underlying valvular heart disease as well as cardiomyopathy and that episode of hypotension. However, an ischemic process will need to be ruled out, and this can be done as an outpatient. The case was discussed earlier today with hospitalist covering, Dr. Simin Marcum, and the patient will be restarted on his beta jennifer with carvedilol but at a lower dose. Will stay away from the angiotensin-converting enzyme inhibitor for now. His cardiac condition seems to be stable, but he probably will benefit from a pharmacological nuclear stress test for further evaluation as an outpatient. He was planning to be discharged home today, but he will stay in the hospital for one more night and he is in agreement. His serum troponin is trending toward normal, and his blood pressure has been stable. He has not been having any further gastrointestinal symptoms. He, however, continues to have some low grade fever, but his white blood cell count is trending down. He will continue the antibiotics as an outpatient. I am concerned about his thrombocytopenia; he will need to be monitored. This was probably related to this event. Currently, urine culture and blood culture are pending. It was a pleasure to participate in the care of Mr. Andrew Orta for his underlying cardiac condition. I will continue to monitor him along with you while in the hospital, and upon discharge, will give him an appointment for followup with Dr. Butler for further cardiac evaluation. Please do not hesitate to call any time if you have any questions.
--- NOTE | 2017-03-28 23:00 | ECHO ---
DATE OF PROCEDURE: 03/26/2017 DATE OF : 1950 AGE: 66 REFERRING PROVIDER: Emergency Room (ER), Dr. Gutierrez REASON FOR THE ECHOCARDIOGRAM: Hypotension. 2D MEASUREMENTS: IVS: 1.5 cm LV: 4.9 cm LVPW: 1.6 cm LA: 5.6 cm Aorta: 3.5 cm RV: 3.7 cm DOPPLER MEASUREMENTS: Peak velocity across the aortic valve: 3.6 m/s Peak velocity across the LVOT: 1.1 m/s Peak gradient across the aortic valve: 46 mmHg Mean gradient across the aortic valve: 30 mmHg Mitral E: 1.1, Mitral A: 1.3 with a ratio of 0.83 Tricuspid valve velocity: 1.9 m/s 2D COMMENTS: 1. Technically limited study due to poor acoustic window. 2. The left ventricular size is normal with probably moderately increased left ventricular wall thickness. Left ventricular systolic function appeared to be normal. The estimated global left ventricular systolic ejection fraction is 55%. 3. Moderately enlarged left atrium. The right atrium appeared to be mildly enlarged in limited views. The right ventricle appeared normal in size. 4. The atrial septum appeared to be normal without evidence of defect or shunt. 5. Normal aortic root. 6. No pericardial effusion seen. 7. Moderately calcified aortic valve with decrease in leaflet excursion. Mildly calcified mitral annulus with normal anterior mitral valve leaflet motion. Normal tricuspid valve. The pulmonic valve and proximal pulmonary artery branches were not well visualized. 8. The inferior vena cava was not well visualized. DOPPLER: It detects trace to mild aortic regurgitation, trace tricuspid regurgitation. The calculated pulmonary artery systolic pressure was normal. Abnormal relaxation pattern was noted across the mitral valve leaflet and may be related to grade 1 left ventricular diastolic dysfunction. IMPRESSION: 1. Technically limited study due to poor acoustic window. 2. Normal global left ventricular systolic function with probably moderate concentric left ventricular hypertrophy. There were features of left ventricular diastolic dysfunction, grade 1. 3. Aortic valve sclerosis with moderate aortic stenosis and trace to mild aortic regurgitation. 4. Moderately enlarged left atrium, may be related to underlying left ventricular diastolic dysfunction.
[2017-03-29 04:45] VITALS: BP 144/81
[2017-03-29 05:24] LABS: MEAN CORPUSCULAR HEMOGLOBIN 33.2 pg (27.0-33.0); MEAN CORPUSCULAR VOLUME 100.4 fl (80.0-96.0); RED CELL DISTRIBUTION WIDTH 14.4 % (11.5-14.5); WHITE BLOOD COUNT 4.8 K/mm3 (4.0-10.0)
[2017-03-29 05:36] LABS: ALBUMIN 2.6 GM/DL (3.2-5.2); ALBUMIN/GLOBULIN RATIO 0.68 (1.00-1.93); ALKALINE PHOSPHATASE 53 U/L (45-117); ALT/SGPT 35 U/L (12-78); ANION GAP 5 MEQ/L (8-16); AST/SGOT 27 U/L (15-37); BILIRUBIN,TOTAL 0.6 MG/DL (0.2-1.0); BLOOD UREA NITROGEN 25 MG/DL (7-18); CALCIUM LEVEL 8.7 MG/DL (8.8-10.2); CARBON DIOXIDE LEVEL 28 MEQ/L (21-32); CHLORIDE LEVEL 111 MEQ/L (98-107); CREATININE FOR GFR 1.18 MG/DL (0.70-1.30); GLOMERULAR FILTRATION RATE > 60.0 (>49); GLUCOSE, FASTING 94 MG/DL (80-110); POTASSIUM SERUM 3.9 MEQ/L (3.5-5.1); SODIUM LEVEL 144 MEQ/L (136-145); TOTAL PROTEIN 6.4 GM/DL (6.4-8.2)
[2017-03-29 08:00] VITALS: BP 136/72
[2017-03-29] MEDS: ASPIRIN 81 MG ENTERIC TAB PO SCH (08:13)
[2017-03-29 08:14] VITALS: BP 136/72
[2017-03-29] MEDS: OCUVITE 1 TAB PO SCH (08:14)
[2017-03-29] MEDS: CARVedilol 3.125 MG TAB PO SCH (08:14)
[2017-03-29] MEDS: DOCUSATE SODIUM 100 MG CAP PO SCH (08:14)
[2017-03-29] MEDS: ALLOPURINOL 300 MG TAB PO SCH (08:15)
[2017-03-29] MEDS: predniSONE 5 MG TAB PO SCH (08:15)
[2017-03-29] MEDS ORDERED: CARV3.12 PO (09:25)
[2017-03-29] MEDS ORDERED: BACT800T5 PO (10:19)
--- NOTE | 2017-03-29 14:28 | IPN ---
DATE OF SERVICE: 03/29/2017 Mr. Andrew Orta was seen this morning, he was sitting in the chair in no acute distress at rest. He has been ambulating around the nurses station without any chest pain and he is feeling much better. He denies any fever or chills. He has no palpitations. He denies any chest pain. His urine grew E. coli and sensitivity is pending. He was started yesterday on carvedilol at 3.125 mg by mouth twice a day and so far he is tolerating it well. He has been off the JENIFER inhibitor/lisinopril. On physical examination, patient is alert and oriented, in no acute distress at rest and his last vital signs this morning revealed a blood pressure of 136/72 with a pulse of 69, respirations 18 and his temperature is 98.4 degrees Fahrenheit and prior to that it was 99.8 degrees Fahrenheit last night. His oxygen saturation is 98% on room air. His fluid balance for 03/28/2017 was -155 mL. Examination of the head, ears, eyes, nose and throat: Atraumatic. Neck is supple, no jugular venous distention (JVD). The lungs were clear bilaterally on auscultation. The heart examination revealed normal S1 and S2 without gallops. The PMI is not displaced. There is no rub. There is a systolic murmur, grade 2/6 over the precordium, at the base of the heart with some minimal radiation to the neck. Abdomen is unremarkable. Extremities no pedal edema. Neurological examination grossly is negative for focal deficits. LABORATORIES: CBC done today revealed a WBC of 4.8, hemoglobin 11.3, hematocrit 34.2, and platelets 107,000. BMP revealed a sodium of 144, potassium 3.9, chloride 111, CO2 28, BUN 25, creatinine 1.18, GFR more than 60, fasting glucose 94. Serum calcium is 8.7. Serum magnesium is 2.0. Liver enzymes reveal a total bilirubin of 2.6, AST 17, ALT 35, alkaline phosphatase 53, and total protein 6.4. Telemetry revealed a normal sinus rhythm, mild IVCD and nonspecific STT abnormalities. Mr. Andrew Chavez is stable from a cardiac point of view. His event on admission was probably related to underlying urinary tract infection causing the vomiting, and then became hypotensive. He has been ambulating and he is feeling much better. The case was discussed with his hospitalist and the patient will be going home today on current medications with the carvedilol at 3.125 mg by mouth twice a day and he will be off the JENIFER inhibitor until he sees Dr. Butler as an outpatient. He will be discharged on a short course of p.o. antibiotics. We also need to follow on the sensitivity to make sure that he is appropriately treated for his UTI.
--- NOTE | 2017-03-29 14:32 | DSES ---
DATE OF ADMISSION: 03/27/2017 DATE OF DISCHARGE: 03/29/2017 ATTENDING PHYSICIAN: Elicia Marcum MD PRIMARY CARE PHYSICIAN: Dr. Jeff Peng REFERRING PHYSICIAN: None CONSULTING PHYSICIAN: Jaquan Torres MD CONDITION ON DISCHARGE: Stable. FINAL DIAGNOSIS: Hypotension, likely secondary to hypovolemia and aortic stenosis. PROCEDURES: None. HISTORY OF PRESENT ILLNESS: The patient is a 66-year-old male with a past medical history of obstructive sleep apnea on continuous positive airway pressure (CPAP), diabetes mellitus type 2, hypertension, coronary artery disease status post coronary artery bypass graft (CABG) in 1988 and in 1992 and stent in 2001 and 2012, diverticulosis, and gout, who presented to the emergency room with complaints of weakness, sweats, nausea, vomiting, and sharp back pain between his shoulderblades. He denied any shortness of breath or chest pain. The patient received a CTA chest, abdomen and pelvis in the emergency room, which was negative for any acute pathology. No pulmonary embolism or aortic dissection was found. He was also found to be hypotensive in the emergency room and received 2 liters of normal saline intravenous (IV) bolus, and his blood pressure had responded appropriately. The patient also received and echocardiogram in the emergency room, and it reveal that there was worsening of his aortic stenosis. HOSPITAL COURSE: 1. Status post hypotension, possible secondary to cardiac etiology, possibly secondary to severe aortic stenosis and hypovolemia, presented with nausea, vomiting, sweating, chills, and pain between shoulderblades. Physical currently does not reveal any acute changes. Blood pressure has normalized after IV fluid hydration. CT of the chest, abdomen and pelvis revealed no acute pathology, no pulmonary embolism (PE), or dissection was noted. Electrocardiogram (EKG) with ischemic changes in the lateral leads was noted. No prior EKGs were available for comparison. Echocardiogram was completed, and was read by Dr. Torres. Cardiac enzymes peaked at 0.36 and have trended down. Lisinopril was put on hold, as well as beta jennifer; but upon hospital course, the patient was restarted on low-dose carvedilol, which he has been tolerating. The patient has been evaluated by Dr. Torres of cardiology, and he will be following up with the patient as an outpatient. 2. Status post leukocytosis and fever, possibly secondary to urinary tract infection. Fever of 100.7 was noted. Urinalysis was consistent with infection. Urine culture was noted to be positive for Escherichia (E.) coli. The patient was started on ceftriaxone for about 2 days' duration. He will be discharged home with Bactrim for completion of antibiotic course. 3. Status post hypomagnesemia. 4. Aortic stenosis. At once (STAT) echocardiogram was completed in the emergency room, which revealed worsening aortic stenosis. 5. Gout. Continue allopurinol and prednisone. 6. Coronary artery disease, status post coronary artery bypass graft and stent. Continue with aspirin, atorvastatin, and carvedilol. 7. Depression. Continue with trazodone. 8. History of diverticulosis. 9. Obstructive sleep apnea, on continuous positive airway pressure. Allow home continuous positive airway pressure (CPAP) use. 10. Deep venous thrombosis (DVT) prophylaxis. Continue with sequential compression devices. DISCHARGE MEDICATIONS: The patient has been discharged home on the following medication list: - allopurinol 300 mg by mouth every day - aspirin 81 mg by mouth every day - atorvastatin 80 mg by mouth each evening - coenzyme Q 100 mg by mouth every day - docusate sodium 100 mg by mouth every day - fish oil 1400 mg by mouth every day - multivitamin one tablet by mouth every day - nitroglycerin 0.2 mg to be taken as directed - polyethylene glycol 17 grams by mouth twice a day as needed constipation - prednisone 5 mg in the morning - prednisone 4 mg by mouth in the evening - vitamin B2 100 mg by mouth daily - trazodone 50 mg by mouth nightly Stopped medications include: - carvedilol 6.25 mg by mouth twice a day - lisinopril 20 mg by mouth every day New medications prescribed include: - carvedilol 3.125 mg by mouth twice a day - Bactrim double-strength one tablet by mouth twice a day for the next 3 days DISCHARGE INSTRUCTIONS: The patient has been advised to followup with his primary care provider and cardiology within the next 7 days. He has been advised to remain compliant with treatment plan and medications and return to the emergency room if he experiences any problems. TIME SPENT ON DISCHARGE: 35 minutes.
== END 2017-03-29 11:15 | disposition home or self-care (01) | DRG 315 ==
LOC: M ED 22:17 → M ED INP 03-27 02:39 → M PCU 03-27 15:49
PROVIDERS: ADMIT Internal Medicine; ATTEND Internal Medicine
DX: I95.9 Hypotension, unspecified (principal); N39.0 Urinary tract infection, site not specified; R53.1 Weakness; G47.33 Obstructive sleep apnea (adult) (pediatric); E11.9 Type 2 diabetes mellitus without complications; I10 Essential (primary) hypertension; I25.10 Atherosclerotic heart disease of native coronary artery without angina pectoris; M10.9 Gout, unspecified; R11.2 Nausea with vomiting, unspecified; J44.9 Chronic obstructive pulmonary disease, unspecified; I35.0 Nonrheumatic aortic (valve) stenosis; B96.20 Unspecified Escherichia coli [E. coli] as the cause of diseases classified elsewhere; E66.9 Obesity, unspecified; E86.1 Hypovolemia; D72.829 Elevated white blood cell count, unspecified; M54.9 Dorsalgia, unspecified; E83.42 Hypomagnesemia; I70.0 Atherosclerosis of aorta; K57.90 Diverticulosis of intestine, part unspecified, without perforation or abscess without bleeding; Z95.5 Presence of coronary angioplasty implant and graft; Z79.82 Long term (current) use of aspirin; Z79.52 Long term (current) use of systemic steroids; Z79.899 Other long term (current) drug therapy

== ENCOUNTER → 2017-04-21 | Outpatient (CLI) | payer MEDICARE ==
[~2017-04-21] MED LIST changes: +BACT800T5 PO; +CARV3.12 PO; +NITR0.2D TD; +PRED1TABL PO; +VITA100T98 PO
--- NOTE | 2017-04-22 10:08 | REP ---
REASON FOR EXAM: Chronic headaches. The patient has a history of scalp melanoma. COMPARISON: 07/12/2008 Gadolinium utilized: 20 mL of ProHance. The craniovertebral junction is within normal limits. There is no abnormal signal seen in the imaged portion of the spinal cord. There is no significant change in the appearance of the ventricles or sulci. There is no mass effect on the noncontrast scan and there are no enhancing mass lesions on the post contrast scan. In the deep cerebral white matter, note is again made of numerable T2 and FLAIR hypersignal foci. These have increased in appearance compared to the prior exam. The orbital and petrous structures, cerebellopontine angles, and posterior fossa are unchanged. The sella turcica, cavernous, and paracavernous structures are unchanged. The imaged paranasal sinuses and mastoid air cells are essentially clear and unchanged. IMPRESSION: Increased deep white matter signal hyperintensities and again suggestive of either a demyelinating process such as multiple sclerosis and/or deep white matter ischemic changes. This needs to be correlated clinically with the appropriate followup. There are no enhancing lesions. Signed by Migue Sniger DO 04/22/2017 11:52 A
== END ==
LOC: M RAD 09:31
PROVIDERS: ATTEND Nurse Practitioner Adult Health
DX: R90.82 White matter disease, unspecified (principal)
CPT/HCPCS: 70553; A9576

== ENCOUNTER → 2017-06-11 | Outpatient (CLI) | payer MEDICARE ==
[~2017-06-11] MED LIST changes: +CIPR-249 PO; -CIPR500T89 PO; -COLA100C3 PO; +COLA100C5 PO; +COLC1CAP PO; +KEFL500C17 PO; +NORCOTAB PO; +PLAV1TAB2 PO; +PRED5TA PO; +TRAM50TA2 PO; +TRAZ50TA11 PO; -TRAZ50TA4 PO; -TRIC145T PO; +TRIC145T22 PO
[2017-06-11 10:01] LABS: ALBUMIN 3.4 GM/DL (3.2-5.2); CALCIUM LEVEL 9.3 MG/DL (8.8-10.2)
[2017-06-11 11:22] LABS: ALBUMIN/GLOBULIN RATIO 0.92 (1.00-1.93); BILIRUBIN,TOTAL 0.6 MG/DL (0.2-1.0); CREATININE FOR GFR 1.29 MG/DL (0.70-1.30); TOTAL PROTEIN 7.1 GM/DL (6.4-8.2)
== END ==
LOC: M LAB 08:07
PROVIDERS: ATTEND Internal Medicine
DX: E78.00 Pure hypercholesterolemia, unspecified (principal); E11.9 Type 2 diabetes mellitus without complications; I25.10 Atherosclerotic heart disease of native coronary artery without angina pectoris; D64.9 Anemia, unspecified; I10 Essential (primary) hypertension

== ENCOUNTER → 2017-06-11 | Outpatient (CLI) | payer MEDICARE ==
[2017-06-11 10:13] LABS: PERCENT SATURATION 30.2 % (19.7-50.0)
== END ==
LOC: M LAB 08:10
PROVIDERS: ATTEND Internal Medicine Cardiovascular Disease
DX: I25.10 Atherosclerotic heart disease of native coronary artery without angina pectoris (principal); D64.9 Anemia, unspecified; I10 Essential (primary) hypertension

== ENCOUNTER 2017-08-28 07:33 | Emergency (ER) | payer MEDICARE ==
[~2017-08-28] VITALS: Ht 179.1 cm; Wt 120.5 kg
[~2017-08-28 07:33] MED LIST changes: -COLC1CAP PO; -KEFL500C17 PO; -NORCOTAB PO; -PLAV1TAB2 PO; -PRED5TA PO; -TRAM50TA2 PO
[2017-08-28] MEDS ORDERED: PLAV1TAB2 PO (07:51)
[2017-08-28] MEDS ORDERED: LISI-538 PO (07:51)
[2017-08-28] MEDS ORDERED: ACETAMINOPHEN TAB 650MG DOSE (2X325MG) PO ONE (08:00)
[2017-08-28 08:21] LABS: BASO % 0.2 % (0.0-1.0); EOS # 0.1 10^3/uL (0.0-0.50); IMMATURE GRANULOCYTE % 0.2 % (0-0); LYMPH # 1.2 10^3/uL (1.5-4.5); LYMPH % 19.3 % (24.0-44.0); MEAN CORPUSCULAR HEMOGLOBIN 32.3 pg (27.0-33.0); MEAN CORPUSCULAR HGB CONC 32.7 g/dl (32.0-36.5); MEAN CORPUSCULAR VOLUME 98.7 fl (80.0-96.0); MONO # 0.7 10^3/uL (0.0-0.8); MONO % 11.7 % (0.0-5.0); NEUTROPHILS % 67.6 % (36.0-66.0); PLATELET COUNT, AUTOMATED 140 10^3/uL (150-450); RED CELL DISTRIBUTION WIDTH 15.1 % (11.5-14.5)
[2017-08-28 08:47] LABS: ANION GAP 8 MEQ/L (8-16); BLOOD UREA NITROGEN 29 MG/DL (7-18); CALCIUM LEVEL 9.3 MG/DL (8.8-10.2); CARBON DIOXIDE LEVEL 27 MEQ/L (21-32); CHLORIDE LEVEL 109 MEQ/L (98-107); CREATININE FOR GFR 1.11 MG/DL (0.70-1.30); GLOMERULAR FILTRATION RATE > 60.0 (>49); GLUCOSE, FASTING 103 MG/DL (80-110); POTASSIUM SERUM 4.5 MEQ/L (3.5-5.1); SODIUM LEVEL 144 MEQ/L (136-145)
[2017-08-28 08:58] LABS: ERYTHROCYTE SEDIMENTATION RATE 58 mm/hr (0-20)
--- NOTE | 2017-08-28 09:07 | REP ---
Left ankle series: Two views. History: Posterior ankle pain. Previous surgery. No comparison views. Findings: There are surgical clips in the medial soft tissues of the distal calf. Extensive vascular calcification is noted. There is mild tibiotalar and midfoot osteoarthritic spurring. There is no evidence of fracture or acute bony abnormality. The Achilles tendon is markedly abnormal and enlarged. It contains extensive dystrophic chronic calcification extending upwards from its calcaneal insertion approximately 5.5 cm. There is another area of a calcification at the musculotendinous junction of the Achilles in the distal calf posteriorly as well. There is some edema in the pretibial fat. Ankle mortise is intact. Exam is otherwise unremarkable. Impression: 1. Advanced chronic Achilles tendonitis change with extensive dystrophic calcification in the enlarged Achilles tendon. 2. Extensive vascular calcification. 3. Ankle and midfoot osteoarthritis. No acute bony abnormality. Signed by Mario Landon MD 08/28/2017 01:17 P
[2017-08-28] MEDS ORDERED: NORCOTAB PO (09:09)
[2017-08-28 09:18] VITALS: BP 127/91
[2017-09-06] MEDS ORDERED: COLC1CAP PO (07:47)
[2017-09-06] MEDS ORDERED: FISH5CAP PO (13:19)
[2017-09-06] MEDS ORDERED: PRED5TA PO (13:19)
[2017-09-06] MEDS ORDERED: CARV3.12 PO (13:19)
[2017-09-06] MEDS ORDERED: PRED1TABL PO (13:19)
[2017-09-07] MEDS ORDERED: TRAM50TA2 PO (08:43)
[2017-09-07] MEDS ORDERED: KEFL500C17 PO (08:43)
== END 2017-08-28 09:20 | disposition home or self-care (01) ==
LOC: M ED 07:33
DX: M76.62 Achilles tendinitis, left leg (principal); E11.9 Type 2 diabetes mellitus without complications; I10 Essential (primary) hypertension; E78.5 Hyperlipidemia, unspecified; G47.33 Obstructive sleep apnea (adult) (pediatric); Z95.5 Presence of coronary angioplasty implant and graft; Z79.02 Long term (current) use of antithrombotics/antiplatelets

== ENCOUNTER → 2017-12-16 | Outpatient (REF) | payer MEDICARE ==
[2017-12-16 12:22] LABS: ALBUMIN 3.4 GM/DL (3.2-5.2); ALBUMIN/GLOBULIN RATIO 0.97 (1.00-1.93); ALKALINE PHOSPHATASE 65 U/L (45-117); ALT/SGPT 21 U/L (12-78); ANION GAP 9 MEQ/L (8-16); AST/SGOT 15 U/L (7-37); BILIRUBIN,TOTAL 0.8 MG/DL (0.2-1.0); BLOOD UREA NITROGEN 28 MG/DL (7-18); CALCIUM LEVEL 8.9 MG/DL (8.8-10.2); CARBON DIOXIDE LEVEL 25 MEQ/L (21-32); CHLORIDE LEVEL 111 MEQ/L (98-107); CHOLESTEROL LEVEL 147 MG/DL (<200); CHOLESTEROL RISK RATIO 3.418 (<5); CREATININE FOR GFR 1.05 MG/DL (0.70-1.30); GLOMERULAR FILTRATION RATE > 60.0 (>49); GLUCOSE, FASTING 85 MG/DL (70-100); HDL CHOLESTEROL 43 MG/DL (>40); MAGNESIUM LEVEL 2.1 MG/DL (1.8-2.4); NON-HDL-C 104 MG/DL; POTASSIUM SERUM 4.2 MEQ/L (3.5-5.1); SODIUM LEVEL 145 MEQ/L (136-145); TOTAL PROTEIN 6.9 GM/DL (6.4-8.2); TRIGLYCERIDES LEVEL 170 MG/DL (<150); URIC ACID 4.3 MG/DL (3.5-7.2)
== END ==
LOC: M SFHCPLAZ 07:50
DX: E78.00 Pure hypercholesterolemia, unspecified (principal); I10 Essential (primary) hypertension; M10.9 Gout, unspecified
CPT/HCPCS: 83735

== ENCOUNTER 2018-01-31 07:34 | Emergency (ER) | payer MEDICARE ==
[2018-01-31 08:16] LABS: BASO % 0.3 % (0.0-1.0); EOS # 0.1 10^3/uL (0.0-0.50); EOS % 1.7 % (0.0-3.0); HEMATOCRIT 34.5 % (42.0-52.0); HEMOGLOBIN 11.2 g/dl (13.5-17.5); IMMATURE GRANULOCYTE % 0.2 % (0-3.0); LYMPH # 1.3 10^3/uL (1.5-4.5); LYMPH % 20.4 % (24.0-44.0); MEAN CORPUSCULAR HEMOGLOBIN 31.5 pg (27.0-33.0); MEAN CORPUSCULAR HGB CONC 32.5 g/dl (32.0-36.5); MEAN CORPUSCULAR VOLUME 97.2 fl (80.0-96.0); MONO # 0.9 10^3/uL (0.0-0.8); MONO % 13.9 % (0.0-5.0); NEUTROPHILS % 63.5 % (36.0-66.0); PLATELET COUNT, AUTOMATED 122 10^3/uL (150-450); RED BLOOD COUNT 3.55 10^6/uL (4.30-6.10); RED CELL DISTRIBUTION WIDTH 16.9 % (11.5-14.5); WHITE BLOOD COUNT 6.3 10^3/uL (4.0-10.0)
[2018-01-31 08:34] LABS: ANION GAP 6 MEQ/L (8-16); BLOOD UREA NITROGEN 31 MG/DL (7-18); CALCIUM LEVEL 9.1 MG/DL (8.8-10.2); CARBON DIOXIDE LEVEL 26 MEQ/L (21-32); CHLORIDE LEVEL 113 MEQ/L (98-107); CPK CREATINE PHOSPHOKINASE 65 U/L (39-308); CREATININE FOR GFR 1.25 MG/DL (0.70-1.30); GLOMERULAR FILTRATION RATE > 60.0 (>49); GLUCOSE, FASTING 100 MG/DL (70-100); MAGNESIUM LEVEL 2.1 MG/DL (1.8-2.4); POTASSIUM SERUM 3.6 MEQ/L (3.5-5.1); SODIUM LEVEL 145 MEQ/L (136-145); TROPONIN I < 0.02 NG/ML (< 0.10)
[2018-01-31 08:40] LABS: CK-MB VALUE MASS 1.8 NG/ML (<3.6); MB/CK RELATIVE INDEX 2.76 (< OR =4)
[2018-01-31 11:25] LABS: CK-MB VALUE MASS 1.5 NG/ML (<3.6); CPK CREATINE PHOSPHOKINASE 61 U/L (39-308); MB/CK RELATIVE INDEX 2.45 (< OR =4); TROPONIN I < 0.02 NG/ML (< 0.10)
== END 2018-01-31 13:01 | disposition home or self-care (01) ==
LOC: M ED 07:34
DX: I49.3 Ventricular premature depolarization (principal); R07.89 Other chest pain; I11.9 Hypertensive heart disease without heart failure; I25.10 Atherosclerotic heart disease of native coronary artery without angina pectoris; I25.2 Old myocardial infarction; E78.5 Hyperlipidemia, unspecified; M10.9 Gout, unspecified; Z95.5 Presence of coronary angioplasty implant and graft; Z95.1 Presence of aortocoronary bypass graft; Z95.2 Presence of prosthetic heart valve; Z79.899 Other long term (current) drug therapy; Z79.02 Long term (current) use of antithrombotics/antiplatelets; Z79.82 Long term (current) use of aspirin; Z79.52 Long term (current) use of systemic steroids
CPT/HCPCS: 71045

== ENCOUNTER 2018-02-03 09:51 | Outpatient (RCR) | payer MEDICARE | END 2018-03-02 | LOC: M PT 09:51 | DX: Z51.89 Encounter for other specified aftercare (principal); M21.372 Foot drop, left foot | CPT/HCPCS: 97110 ==

== ENCOUNTER 2018-02-22 08:36 | Emergency (ER) | payer MEDICARE | END 2018-02-22 09:26 | disposition home or self-care (01) | LOC: M ED 08:36 | DX: L50.9 Urticaria, unspecified (principal); I25.10 Atherosclerotic heart disease of native coronary artery without angina pectoris; E11.9 Type 2 diabetes mellitus without complications; I10 Essential (primary) hypertension; Z79.01 Long term (current) use of anticoagulants; Z95.1 Presence of aortocoronary bypass graft; Z98.890 Other specified postprocedural states; Z79.899 Other long term (current) drug therapy; Z79.82 Long term (current) use of aspirin; Z79.52 Long term (current) use of systemic steroids | CPT/HCPCS: 99282 ==

== ENCOUNTER 2018-03-03 08:11 | Outpatient (RCR) | payer MEDICARE | END 2018-04-02 | LOC: M PT 03-05 08:14 | DX: Z51.89 Encounter for other specified aftercare (principal); M21.372 Foot drop, left foot | CPT/HCPCS: 97110 ==

== ENCOUNTER → 2018-03-23 | Outpatient (CLI) | payer MEDICARE | LOC: M RAD 09:23 | DX: M21.372 Foot drop, left foot (principal); L13.8 Other specified bullous disorders; Z51.81 Encounter for therapeutic drug level monitoring; Z79.899 Other long term (current) drug therapy; Z96.652 Presence of left artificial knee joint | CPT/HCPCS: 73700 ==

== ENCOUNTER → 2018-03-23 | Outpatient (CLI) | payer MEDICARE ==
[2018-03-23 12:02] LABS: BASO % 0.5 % (0.0-1.0); EOS # 0.1 10^3/uL (0.0-0.50); EOS % 1.4 % (0.0-3.0); HEMATOCRIT 32.9 % (42.0-52.0); HEMOGLOBIN 10.7 g/dl (13.5-17.5); IMMATURE GRANULOCYTE % 0.5 % (0-3.0); LYMPH # 0.8 10^3/uL (1.5-4.5); LYMPH % 12.1 % (24.0-44.0); MEAN CORPUSCULAR HEMOGLOBIN 31.6 pg (27.0-33.0); MEAN CORPUSCULAR HGB CONC 32.5 g/dl (32.0-36.5); MEAN CORPUSCULAR VOLUME 97.1 fl (80.0-96.0); MONO # 0.6 10^3/uL (0.0-0.8); MONO % 8.6 % (0.0-5.0); NEUTROPHILS # 5.1 10^3/uL (1.8-7.7); NEUTROPHILS % 76.9 % (36.0-66.0); PLATELET COUNT, AUTOMATED 185 10^3/uL (150-450); RED BLOOD COUNT 3.39 10^6/uL (4.30-6.10); RED CELL DISTRIBUTION WIDTH 17.2 % (11.5-14.5); WHITE BLOOD COUNT 6.6 10^3/uL (4.0-10.0)
[2018-03-23 12:24] LABS: ALBUMIN 3.4 GM/DL (3.2-5.2); ALBUMIN/GLOBULIN RATIO 0.94 (1.00-1.93); ALKALINE PHOSPHATASE 71 U/L (45-117); ALT/SGPT 24 U/L (12-78); AST/SGOT 16 U/L (7-37); BILIRUBIN,DIRECT 0.1 MG/DL (0.0-0.2); BILIRUBIN,TOTAL 0.4 MG/DL (0.2-1.0)
[2018-03-25 08:06] LABS: G6PD3 324 (146-376)
== END ==
LOC: M LAB 10:56
DX: L13.8 Other specified bullous disorders (principal); Z51.81 Encounter for therapeutic drug level monitoring; Z79.899 Other long term (current) drug therapy
CPT/HCPCS: 80076

== ENCOUNTER 2018-04-14 08:15 | Outpatient (RCR) | payer MEDICARE | END 2018-05-02 | LOC: M PT 08:15 | DX: Z51.89 Encounter for other specified aftercare (principal); M21.372 Foot drop, left foot | CPT/HCPCS: 97110 ==

== ENCOUNTER → 2018-04-24 | Outpatient (CLI) | payer MEDICARE ==
[2018-04-24 09:40] LABS: BASO % 0.3 % (0.0-1.0); EOS # 0.1 10^3/uL (0.0-0.50); EOS % 1.1 % (0.0-3.0); HEMATOCRIT 33.8 % (42.0-52.0); HEMOGLOBIN 10.8 g/dl (13.5-17.5); IMMATURE GRANULOCYTE % 0.4 % (0-3.0); LYMPH # 0.9 10^3/uL (1.5-4.5); LYMPH % 12.2 % (24.0-44.0); MEAN CORPUSCULAR HEMOGLOBIN 31.3 pg (27.0-33.0); MONO # 0.5 10^3/uL (0.0-0.8); MONO % 7.3 % (0.0-5.0); NEUTROPHILS # 5.5 10^3/uL (1.8-7.7); NEUTROPHILS % 78.7 % (36.0-66.0); PLATELET COUNT, AUTOMATED 115 10^3/uL (150-450); RED BLOOD COUNT 3.45 10^6/uL (4.30-6.10); RED CELL DISTRIBUTION WIDTH 18.2 % (11.5-14.5)
[2018-04-24 09:59] LABS: ALBUMIN 3.3 GM/DL (3.2-5.2); ALBUMIN/GLOBULIN RATIO 0.89 (1.00-1.93); ALKALINE PHOSPHATASE 58 U/L (45-117); ALT/SGPT 19 U/L (12-78); ANION GAP 8 MEQ/L (8-16); AST/SGOT 12 U/L (7-37); BILIRUBIN,TOTAL 0.6 MG/DL (0.2-1.0); BLOOD UREA NITROGEN 41 MG/DL (7-18); CALCIUM LEVEL 8.7 MG/DL (8.8-10.2); CARBON DIOXIDE LEVEL 26 MEQ/L (21-32); CHLORIDE LEVEL 113 MEQ/L (98-107); CREATININE FOR GFR 1.27 MG/DL (0.70-1.30); GLOMERULAR FILTRATION RATE 59.9 (>49); GLUCOSE, FASTING 102 MG/DL (70-100); POTASSIUM SERUM 4.3 MEQ/L (3.5-5.1); SODIUM LEVEL 147 MEQ/L (136-145)
== END ==
LOC: M LAB 09:07
DX: Z51.81 Encounter for therapeutic drug level monitoring (principal); Z79.899 Other long term (current) drug therapy
CPT/HCPCS: 80053

== ENCOUNTER → 2018-05-19 | Outpatient (CLI) | payer MEDICARE ==
[2018-05-19 14:17] LABS: BASO % 0.4 % (0.0-1.0); EOS % 0.4 % (0.0-3.0); HEMATOCRIT 34.1 % (42.0-52.0); IMMATURE GRANULOCYTE % 0.3 % (0-3.0); LYMPH # 0.8 10^3/uL (1.5-4.5); LYMPH % 12.4 % (24.0-44.0); MEAN CORPUSCULAR HEMOGLOBIN 31.4 pg (27.0-33.0); MEAN CORPUSCULAR HGB CONC 32.3 g/dl (32.0-36.5); MEAN CORPUSCULAR VOLUME 97.4 fl (80.0-96.0); MONO # 0.4 10^3/uL (0.0-0.8); MONO % 6.6 % (0.0-5.0); NEUTROPHILS # 5.3 10^3/uL (1.8-7.7); NEUTROPHILS % 79.9 % (36.0-66.0); PLATELET COUNT, AUTOMATED 118 10^3/uL (150-450); RED CELL DISTRIBUTION WIDTH 16.9 % (11.5-14.5); WHITE BLOOD COUNT 6.7 10^3/uL (4.0-10.0)
== END ==
LOC: M LAB 13:54
DX: L13.0 Dermatitis herpetiformis (principal)
CPT/HCPCS: 85027

== ENCOUNTER 2018-05-29 09:48 | Emergency (ER) | payer MEDICARE ==
[2018-05-29 10:17] LABS: BASO % 0.1 % (0.0-1.0); EOS % 0.5 % (0.0-3.0); HEMATOCRIT 36.4 % (42.0-52.0); IMMATURE GRANULOCYTE % 0.4 % (0-3.0); LYMPH % 11.8 % (24.0-44.0); MEAN CORPUSCULAR HEMOGLOBIN 32.3 pg (27.0-33.0); MEAN CORPUSCULAR VOLUME 97.8 fl (80.0-96.0); MONO # 0.8 10^3/uL (0.0-0.8); MONO % 9.5 % (0.0-5.0); NEUTROPHILS # 6.3 10^3/uL (1.8-7.7); NEUTROPHILS % 77.7 % (36.0-66.0); PLATELET COUNT, AUTOMATED 117 10^3/uL (150-450); RED BLOOD COUNT 3.72 10^6/uL (4.30-6.10); RED CELL DISTRIBUTION WIDTH 17.4 % (11.5-14.5); WHITE BLOOD COUNT 8.1 10^3/uL (4.0-10.0)
[2018-05-29 10:32] LABS: INR 1.09; PROTHROMBIN TIME 14.3 SECONDS (12.1-14.4)
[2018-05-29 10:33] LABS: PARTIAL THROMBOPLASTIN TIME 24.2 SECONDS (25.4-37.6)
[2018-05-29] MEDS: NS 1,000 ML IV (10:40)
[2018-05-29 10:41] LABS: ANION GAP 6 MEQ/L (8-16); AST/SGOT 46 U/L (7-37); BLOOD UREA NITROGEN 42 MG/DL (7-18); CALCIUM LEVEL 9.1 MG/DL (8.8-10.2); CARBON DIOXIDE LEVEL 26 MEQ/L (21-32); CHLORIDE LEVEL 113 MEQ/L (98-107); CREATININE FOR GFR 1.42 MG/DL (0.70-1.30); GLOMERULAR FILTRATION RATE 52.6 (>49); GLUCOSE, FASTING 87 MG/DL (70-100); POTASSIUM SERUM 4.3 MEQ/L (3.5-5.1); SODIUM LEVEL 145 MEQ/L (136-145)
[2018-05-29 10:42] LABS: ALBUMIN 3.5 GM/DL (3.2-5.2); ALBUMIN/GLOBULIN RATIO 0.85 (1.00-1.93); ALKALINE PHOSPHATASE 60 U/L (45-117); ALT/SGPT 65 U/L (12-78); BILIRUBIN,DIRECT 0.1 MG/DL (0.0-0.2); BILIRUBIN,TOTAL 0.6 MG/DL (0.2-1.0); CPK CREATINE PHOSPHOKINASE 114 U/L (39-308); LIPASE 298 U/L (73-393); TOTAL PROTEIN 7.6 GM/DL (6.4-8.2); TROPONIN I 0.13 NG/ML (< 0.10)
[2018-05-29 10:47] LABS: CK-MB VALUE MASS 3.5 NG/ML (<3.6); FREE T4 0.83 NG/DL (0.76-1.46); MB/CK RELATIVE INDEX 3.07 (< OR =4); NT-PRO BNP 9056 PG/ML (<125)
[2018-05-29] MEDS: HEPARIN SOD (PORCINE) 5000 UNITS/ML VIAL IV (11:28)
[2018-05-29] MEDS: METOPROLOL SUCC *XL* 25MG TAB (TopROL *XL*) PO (11:28)
[2018-05-29] MEDS: HEPARIN DRIP 25,000 UNITS in APPROPRIATE DILUENT 1 EA IV (11:30)
== END 2018-05-29 12:19 | disposition short-term general hospital (02) ==
LOC: M ED 09:48
DX: I21.4 Non-ST elevation (NSTEMI) myocardial infarction (principal); I48.91 Unspecified atrial fibrillation; E11.9 Type 2 diabetes mellitus without complications; I10 Essential (primary) hypertension; E78.5 Hyperlipidemia, unspecified; Z79.82 Long term (current) use of aspirin; Z79.899 Other long term (current) drug therapy
CPT/HCPCS: 71045

== ENCOUNTER → 2018-06-19 | Outpatient (CLI) | payer MEDICARE ==
[2018-06-19 09:44] LABS: BASO % 0.2 % (0.0-1.0); EOS # 0.1 10^3/uL (0.0-0.50); EOS % 2.5 % (0.0-3.0); HEMOGLOBIN 10.3 g/dl (13.5-17.5); IMMATURE GRANULOCYTE % 0.5 % (0-3.0); LYMPH # 1.6 10^3/uL (1.5-4.5); LYMPH % 27.7 % (24.0-44.0); MEAN CORPUSCULAR HEMOGLOBIN 32.5 pg (27.0-33.0); MEAN CORPUSCULAR HGB CONC 32.2 g/dl (32.0-36.5); MEAN CORPUSCULAR VOLUME 100.9 fl (80.0-96.0); MONO # 0.5 10^3/uL (0.0-0.8); NEUTROPHILS # 3.5 10^3/uL (1.8-7.7); NEUTROPHILS % 61.1 % (36.0-66.0); RED BLOOD COUNT 3.17 10^6/uL (4.30-6.10); RED CELL DISTRIBUTION WIDTH 17.2 % (11.5-14.5); WHITE BLOOD COUNT 5.6 10^3/uL (4.0-10.0)
[2018-06-19 10:04] LABS: IMMATURE PLATELET FRACTION % 7.6 % (0.0-10.9); PLATELET COUNT, AUTOMATED 79 10^3/uL (150-450)
== END ==
LOC: M LAB 08:22
DX: Z51.81 Encounter for therapeutic drug level monitoring (principal); L13.0 Dermatitis herpetiformis
CPT/HCPCS: 85049

== ENCOUNTER → 2018-07-08 | Outpatient (REF) | payer MEDICARE ==
[2018-07-08 11:42] LABS: HEMATOCRIT 33.9 % (42.0-52.0); HEMOGLOBIN 10.8 g/dl (13.5-17.5); MEAN CORPUSCULAR HGB CONC 31.9 g/dl (32.0-36.5); MEAN CORPUSCULAR VOLUME 100.6 fl (80.0-96.0); PLATELET COUNT, AUTOMATED 143 10^3/uL (150-450); RED BLOOD COUNT 3.37 10^6/uL (4.30-6.10); RED CELL DISTRIBUTION WIDTH 17.1 % (11.5-14.5); WHITE BLOOD COUNT 9.4 10^3/uL (4.0-10.0)
[2018-07-08 11:57] LABS: ESTIMATED AVERAGE GLUCOSE 103 MG/DL (60-110); HEMOGLOBIN A1c 5.2 %
[2018-07-08 12:10] LABS: ALBUMIN 3.9 GM/DL (3.2-5.2); ALBUMIN/GLOBULIN RATIO 1.18 (1.00-1.93); ALKALINE PHOSPHATASE 53 U/L (45-117); ALT/SGPT 28 U/L (12-78); ANION GAP 10 MEQ/L (8-16); AST/SGOT 22 U/L (7-37); BILIRUBIN,TOTAL 0.6 MG/DL (0.2-1.0); BLOOD UREA NITROGEN 48 MG/DL (7-18); CALCIUM LEVEL 9.4 MG/DL (8.8-10.2); CARBON DIOXIDE LEVEL 27 MEQ/L (21-32); CHLORIDE LEVEL 109 MEQ/L (98-107); GLOMERULAR FILTRATION RATE 45.9 (>49); GLUCOSE, FASTING 90 MG/DL (70-100); MAGNESIUM LEVEL 2.7 MG/DL (1.8-2.4); POTASSIUM SERUM 4.5 MEQ/L (3.5-5.1); SODIUM LEVEL 146 MEQ/L (136-145); TOTAL PROTEIN 7.2 GM/DL (6.4-8.2)
[2018-07-08 12:15] LABS: PTH INTACT 81.8 PG/ML (18.5-88.0)
[2018-07-08 12:16] LABS: FOLATE > 24.0 NG/ML; VITAMIN B12 LEVEL 598 PG/ML
== END ==
LOC: M SFHCPLAZ 09:36
DX: E11.22 Type 2 diabetes mellitus with diabetic chronic kidney disease (principal); I12.9 Hypertensive chronic kidney disease with stage 1 through stage 4 chronic kidney disease, or unspecified chronic kidney disease; N18.3 Chronic kidney disease, stage 3 (moderate); D69.6 Thrombocytopenia, unspecified
CPT/HCPCS: 82746

== ENCOUNTER → 2018-07-15 | Outpatient (CLI) | payer MEDICARE ==
[2018-07-15 08:39] LABS: BASO % 0.4 % (0.0-1.0); EOS # 0.1 10^3/uL (0.0-0.50); EOS % 1.3 % (0.0-3.0); HEMATOCRIT 31.8 % (42.0-52.0); HEMOGLOBIN 10.2 g/dl (13.5-17.5); IMMATURE GRANULOCYTE % 0.4 % (0-3.0); LYMPH # 1.6 10^3/uL (1.5-4.5); LYMPH % 21.1 % (24.0-44.0); MEAN CORPUSCULAR HEMOGLOBIN 32.5 pg (27.0-33.0); MEAN CORPUSCULAR HGB CONC 32.1 g/dl (32.0-36.5); MEAN CORPUSCULAR VOLUME 101.3 fl (80.0-96.0); MONO # 0.9 10^3/uL (0.0-0.8); MONO % 12.6 % (0.0-5.0); NEUTROPHILS # 4.8 10^3/uL (1.8-7.7); NEUTROPHILS % 64.2 % (36.0-66.0); PLATELET COUNT, AUTOMATED 127 10^3/uL (150-450); RED BLOOD COUNT 3.14 10^6/uL (4.30-6.10); RED CELL DISTRIBUTION WIDTH 17.3 % (11.5-14.5); WHITE BLOOD COUNT 7.5 10^3/uL (4.0-10.0)
== END ==
LOC: M LAB 07:40
DX: L13.0 Dermatitis herpetiformis (principal); L13.8 Other specified bullous disorders
CPT/HCPCS: 85027

== ENCOUNTER 2018-11-29 15:35 | Emergency (ER) | payer MEDICARE ==
[~2018-11-29] VITALS: Ht 177.8 cm; Wt 111.4 kg
[~2018-11-29 15:35] MED LIST changes: +BENA25CA4 PO; +COLC1CAP PO; +DAPS25TA2 PO; +FEXO180T58 PO; +KEFL500C17 PO; +MULT1CHW44 PO; -NITR0.2D TD; +NORCOTAB PO; +PEPC1TAB5 PO; +PLAV1TAB2 PO; +PRED10TA2 PO; +PRED20TA PO; +PRED5TA PO; +TRAM50TA2 PO; +TRAZ-160 PO; -TRAZ50TA11 PO; +XYZA5TAB4 PO; -ZYLO300T4 PO; +ZYLO300T6 PO; +[UNRECOGNIZED DRUG - CODE] TD
[2018-11-29] MEDS ORDERED: TRAZ-160 PO (16:39)
[2018-11-29] MEDS ORDERED: FURO40TA2 PO (16:39)
[2018-11-29] MEDS ORDERED: AMOX125C PO (16:39)
[2018-11-29] MEDS ORDERED: XARE15TA PO (16:39)
[2018-11-29] MEDS ORDERED: TRANEXAMIC ACID 100 MG/ML 10ML VIAL XX ONE (16:45)
[2018-11-29] MEDS ORDERED: TRANEXAMIC ACID IV ONE (16:45)
[2018-11-29] MEDS ORDERED: FLUID PLACE HOLDER IV ONE (16:45)
[2018-11-29 17:54] VITALS: BP 143/63
== END 2018-11-29 17:51 | disposition home or self-care (01) ==
LOC: M ED 15:35
DX: R04.0 Epistaxis (principal); I10 Essential (primary) hypertension

== ENCOUNTER → 2018-12-08 | Outpatient (CLI) | payer MEDICARE ==
[~2018-12-08] MED LIST changes: +AMOX125C PO; +FURO40TA2 PO; +LISI-542; +XARE15TA PO
[2018-12-08 11:11] LABS: HEMATOCRIT 33.2 % (42.0-52.0); HEMOGLOBIN 10.5 g/dl (13.5-17.5); MEAN CORPUSCULAR HEMOGLOBIN 31.1 pg (27.0-33.0); MEAN CORPUSCULAR HGB CONC 31.6 g/dl (32.0-36.5); MEAN CORPUSCULAR VOLUME 98.2 fl (80.0-96.0); PLATELET COUNT, AUTOMATED 155 10^3/uL (150-450); RED BLOOD COUNT 3.38 10^6/uL (4.30-6.10); WHITE BLOOD COUNT 6.4 10^3/uL (4.0-10.0)
[2018-12-08 11:35] LABS: CREATININE, URINE 60.9 MG/DL
[2018-12-08 11:37] LABS: HEMOGLOBIN A1c 4.9 %
[2018-12-08 11:45] LABS: ALBUMIN 3.6 GM/DL (3.2-5.2); BILIRUBIN,TOTAL 0.7 MG/DL (0.2-1.0); CALCIUM LEVEL 9.2 MG/DL (8.8-10.2); CHOLESTEROL RISK RATIO 5.083 (<5); CREATININE FOR GFR 1.57 MG/DL (0.70-1.30); FREE T4 1.01 NG/DL (0.76-1.46); GLOMERULAR FILTRATION RATE 46.7 (>42); MAGNESIUM LEVEL 2.2 MG/DL (1.8-2.4); POTASSIUM SERUM 4.7 MEQ/L (3.5-5.1); PTH INTACT 67.9 PG/ML (18.5-88.0); THYROID STIMULATING HORMONE 1.84 uIU/ML (0.358-3.740)
== END ==
LOC: M LAB 09:14
PROVIDERS: ATTEND Internal Medicine
DX: N18.3 Chronic kidney disease, stage 3 (moderate) (principal); Z79.899 Other long term (current) drug therapy

== ENCOUNTER → 2018-12-08 | Outpatient (CLI) | payer MEDICARE ==
[~2018-12-08] MED LIST changes: -LISI-542
== END ==
LOC: M LAB 09:37
PROVIDERS: ATTEND Internal Medicine Cardiovascular Disease
DX: I48.91 Unspecified atrial fibrillation (principal); R06.00 Dyspnea, unspecified

== ENCOUNTER → 2018-12-08 | Outpatient (CLI) | payer MEDICARE | LOC: M LAB 09:28 | PROVIDERS: ATTEND Nurse Practitioner | DX: M35.3 Polymyalgia rheumatica (principal) ==

== ENCOUNTER 2018-12-13 07:22 | Emergency (ER) | payer MEDICARE ==
[~2018-12-13] VITALS: Ht 177.8 cm; Wt 109.1 kg
[2018-12-13] MEDS ORDERED: LISI-542 (07:32)
[2018-12-13] MEDS ORDERED: NITROGLYCERIN 0.4 MG SUBL TABLET SL ONE (08:00)
[2018-12-13] MEDS ORDERED: NS 500 ML IV ONE (08:00)
[2018-12-13 08:20] LABS: BASO % 0.4 % (0.0-1.0); EOS # 0.2 10^3/uL (0.0-0.50); EOS % 2.6 % (0.0-3.0); HEMATOCRIT 32.1 % (42.0-52.0); HEMOGLOBIN 10.4 g/dl (13.5-17.5); LYMPH # 1.3 10^3/uL (1.5-4.5); LYMPH % 22.5 % (24.0-44.0); MEAN CORPUSCULAR HEMOGLOBIN 31.1 pg (27.0-33.0); MEAN CORPUSCULAR HGB CONC 32.4 g/dl (32.0-36.5); MEAN CORPUSCULAR VOLUME 96.1 fl (80.0-96.0); MONO # 0.6 10^3/uL (0.0-0.8); MONO % 10.9 % (0.0-5.0); NEUTROPHILS # 3.6 10^3/uL (1.8-7.7); NEUTROPHILS % 63.2 % (36.0-66.0); PLATELET COUNT, AUTOMATED 148 10^3/uL (150-450); RED BLOOD COUNT 3.34 10^6/uL (4.30-6.10); WHITE BLOOD COUNT 5.7 10^3/uL (4.0-10.0)
[2018-12-13 08:34] LABS: INR 1.77; PROTHROMBIN TIME 20.9 SECONDS (12.1-14.4)
[2018-12-13 08:35] LABS: PARTIAL THROMBOPLASTIN TIME 37.6 SECONDS (25.4-37.6)
[2018-12-13 08:38] LABS: ALBUMIN 3.6 GM/DL (3.2-5.2); BILIRUBIN,DIRECT 0.2 MG/DL (0.0-0.2); BILIRUBIN,TOTAL 0.6 MG/DL (0.2-1.0); CALCIUM LEVEL 9.2 MG/DL (8.8-10.2); CREATININE FOR GFR 1.48 MG/DL (0.70-1.30); FREE T4 0.9 NG/DL (0.76-1.46); MB/CK RELATIVE INDEX 1.92 (< OR =4); THYROID STIMULATING HORMONE 2.22 uIU/ML (0.358-3.740); TOTAL PROTEIN 7.5 GM/DL (6.4-8.2); TROPONIN I 0.02 NG/ML (< 0.10)
[2018-12-13] MEDS ORDERED: ISOVUE-370 76% 100ML VIAL (Q9967) As Ordered ONE (08:48)
--- NOTE | 2018-12-13 11:39 | REP ---
CHEST, TWO VIEWS: Two views of the chest are performed and compared to several prior exams, most recent of which is 05/29/2018. I see no acute infiltrate. The heart is upper limits of normal in size. Mediastinal silhouette is unchanged. There are multiple sternal wires and mediastinal clips present as well as a prosthetic heart valve. There are degenerative changes of the spine. IMPRESSION: No acute infiltrate. Electronically Signed by Adonay Sifuentes MD 12/13/2018 07:02 P
--- NOTE | 2018-12-13 11:44 | REP ---
CT ANGIOGRAM CHEST: TECHNIQUE: Axial contrast enhanced images from the thoracic inlet to the upper abdomen using 100 mL Isovue 370 intravenous contrast material with multiplanar reformations. There is no CT evidence of pulmonary embolism. There is no thoracic aorta aneurysm or dissection. There is scattered to moderate atherosclerotic calcification of the thoracic aorta. Heart is upper limits of normal in size. No adenopathy is seen. There is no pericardial effusion. There may be a tiny amount of left pleural fluid. There is some minor atelectasis or infiltrate in the left posterior costophrenic sulcus. Multiple gallstones are seen in the gallbladder. There is a cyst of the upper pole of the left kidney. There are degenerative changes of the spine. IMPRESSION: No CT evidence of pulmonary embolism or aortic dissection. Mild atelectasis/infiltrate and possible a tiny amount of pleural fluid in the left posterior costophrenic sulcus. Electronically Signed by Adonay Sifuentes MD 12/13/2018 07:02 P
[2018-12-13 12:43] LABS: MB/CK RELATIVE INDEX 1.87 (< OR =4); TROPONIN I 0.03 NG/ML (< 0.10)
[2018-12-13 13:12] VITALS: BP 116/58
--- NOTE | 2018-12-13 19:24 | ECGEPIP ---
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
--- NOTE | 2018-12-15 08:56 | ED PDOC ---
Post-Departure Follow-Up dr rivas faxed formal report of cta chest for fu Mei Lacey MD Dec 15, 2018 08:56
== END 2018-12-13 13:17 | disposition home or self-care (01) ==
LOC: M ED 07:22
DX: M54.9 Dorsalgia, unspecified (principal); R00.1 Bradycardia, unspecified; R94.31 Abnormal electrocardiogram [ECG] [EKG]; I48.91 Unspecified atrial fibrillation; I20.9 Angina pectoris, unspecified; I25.2 Old myocardial infarction; I11.0 Hypertensive heart disease with heart failure; E78.5 Hyperlipidemia, unspecified; G47.33 Obstructive sleep apnea (adult) (pediatric); Z98.890 Other specified postprocedural states; Z79.01 Long term (current) use of anticoagulants
CPT/HCPCS: 71046; 71275; 80048; 80076; 82550; 82553; 83690; 83880; 84439; 84443; 84484; 85025; 85610; 85730; 93005; 93041; 99285; Q9967

== ENCOUNTER → 2019-02-10 | Outpatient (REF) | payer MEDICARE ==
[~2019-02-10] MED LIST changes: +ASPI-1 PO; -ASPI325T PO; +HYDR-3715 PO; +LISI-542; +LISI40TA52 PO; -LISI40TAB PO; -NORCOTAB PO
[2019-02-10 16:29] LABS: ALBUMIN 3.5 GM/DL (3.2-5.2); BILIRUBIN,TOTAL 0.4 MG/DL (0.2-1.0); CALCIUM LEVEL 9.3 MG/DL (8.8-10.2); CHOLESTEROL RISK RATIO 3.75 (<5); CREATININE FOR GFR 1.7 MG/DL (0.70-1.30); GLOMERULAR FILTRATION RATE 42.6 (>42); MAGNESIUM LEVEL 2.3 MG/DL (1.8-2.4); POTASSIUM SERUM 4.5 MEQ/L (3.5-5.1); TOTAL PROTEIN 7.5 GM/DL (6.4-8.2)
[2019-02-10 16:44] LABS: HEMATOCRIT 30.9 % (42.0-52.0); HEMOGLOBIN 9.9 g/dl (13.5-17.5); HEMOGLOBIN A1c 4.7 %; MEAN CORPUSCULAR HEMOGLOBIN 31.8 pg (27.0-33.0); MEAN CORPUSCULAR VOLUME 99.4 fl (80.0-96.0); PLATELET COUNT, AUTOMATED 178 10^3/uL (150-450); RED BLOOD COUNT 3.11 10^6/uL (4.30-6.10); WHITE BLOOD COUNT 6.5 10^3/uL (4.0-10.0)
== END ==
LOC: M SFHCPLAZ 13:55
PROVIDERS: ATTEND Internal Medicine
DX: D69.6 Thrombocytopenia, unspecified (principal); E78.00 Pure hypercholesterolemia, unspecified; E11.9 Type 2 diabetes mellitus without complications; I12.9 Hypertensive chronic kidney disease with stage 1 through stage 4 chronic kidney disease, or unspecified chronic kidney disease; M35.3 Polymyalgia rheumatica

== ENCOUNTER 2019-02-28 10:57 | Inpatient (IN) | payer MEDICARE ==
[~2019-02-28] VITALS: Ht 177.8 cm; Wt 105.2 kg
[~2019-02-28 10:57] MED LIST changes: -LISI-542; +LISI-542 PO
[2019-02-28 11:38] LABS: BASO % 0.4 % (0.0-1.0); EOS # 0.2 10^3/uL (0.0-0.50); EOS % 2.2 % (0.0-3.0); HEMATOCRIT 31.7 % (42.0-52.0); HEMOGLOBIN 10.3 g/dl (13.5-17.5); MEAN CORPUSCULAR HEMOGLOBIN 30.9 pg (27.0-33.0); MEAN CORPUSCULAR HGB CONC 32.5 g/dl (32.0-36.5); MEAN CORPUSCULAR VOLUME 95.2 fl (80.0-96.0); MONO # 0.7 10^3/uL (0.0-0.8); NEUTROPHILS # 5.4 10^3/uL (1.8-7.7); NEUTROPHILS % 74.1 % (36.0-66.0); PLATELET COUNT, AUTOMATED 171 10^3/uL (150-450); RED BLOOD COUNT 3.33 10^6/uL (4.30-6.10); WHITE BLOOD COUNT 7.3 10^3/uL (4.0-10.0)
[2019-02-28] MEDS ORDERED: VASC1CAP2 PO (11:58)
[2019-02-28] MEDS ORDERED: COLA100C5 PO (11:58)
[2019-02-28] MEDS ORDERED: ROSU10TA5 PO (11:58)
[2019-02-28] MEDS ORDERED: ZETI10TA30 PO (11:58)
[2019-02-28 12:18] LABS: ALBUMIN 3.5 GM/DL (3.2-5.2); ALT/SGPT 17 U/L (12-78); BILIRUBIN,DIRECT 0.2 MG/DL (0.0-0.2); BILIRUBIN,TOTAL 0.8 MG/DL (0.2-1.0); BLOOD UREA NITROGEN 41 MG/DL (7-18); CARBON DIOXIDE LEVEL 26 MEQ/L (21-32); CHLORIDE LEVEL 109 MEQ/L (98-107); CPK CREATINE PHOSPHOKINASE 82 U/L (39-308); CREATININE FOR GFR 2.07 MG/DL (0.70-1.30); GLUCOSE, FASTING 105 MG/DL (70-100); LIPASE 72 U/L (73-393); MB/CK RELATIVE INDEX 1.83 (< OR =4); POTASSIUM SERUM 4.1 MEQ/L (3.5-5.1); SODIUM LEVEL 142 MEQ/L (136-145); TOTAL PROTEIN 7.9 GM/DL (6.4-8.2); TROPONIN I < 0.02 NG/ML (< 0.10)
[2019-02-28] MEDS: MORPHINE 2 MG/ML 1ML SYRINGE (J2270) IV PRN ×2 (12:26→13:07)
[2019-02-28] MEDS ORDERED: NS 1,000 ML IV ONE ×2 (12:30→15:30)
[2019-02-28] MEDS ORDERED: ONDANSETRON 4MG/2ML VIAL (J2405) IV ONE (12:30)
--- NOTE | 2019-02-28 13:24 | REP ---
Chest one-view HISTORY: Abdominal pain Comparison: 12/13/2018 The lungs are clear. The heart is normal in size. The pulmonary vasculature is normal in appearance. Impression: No acute disease. Electronically Signed by Yuriy Del Valle MD 02/28/2019 01:15 P
--- NOTE | 2019-02-28 14:22 | REP ---
CT ABDOMEN AND PELVIS WITHOUT CONTRAST: HISTORY: Left lower quadrant pain. COMPARISON: 03/26/2017 Calcifications are present in the gallbladder consistent with cholelithiasis. A curvilinear calcification is present in the spleen. There are bilateral renal cysts. The largest right renal cyst measures 1.6 cm in width. The largest left renal cyst measures 7.5 cm in width. The kidneys are irregular in contour consistent with scarring. There is no adenopathy or free fluid. Fat-containing right and left ventral abdominal hernias are present. The right ventral hernia measures 9 cm in width. The left hernia measures 11.5 cm in width. Diverticula are present in the descending and sigmoid colon. There is moderate distention of the colon from the cecum to the level of the mid descending colon. A small hiatal hernia is present. A 1.2 cm parenchymal nodule is present in the left lower lobe seen in image #19. A 1.2 cm parenchymal nodule is present in the right lower lobe seen in image #24. The visualized right lung is clear. The patient is status post left total hip replacement. This partially obscures the pelvis. Calcifications are present in the prostate gland. The urinary bladder is normal in appearance. Diverticula are present in the descending and sigmoid colon. A fat-containing left inguinal hernia is present. Degenerative change is present in the spine. IMPRESSION: 1. Cholelithiasis. 2. Bilateral renal cysts. 3. Diverticulosis. 4. There is moderate distention of the colon from the cecum to the mid descending colon. A mass at this level cannot be excluded. 5. There are bilateral fat-containing ventral abdominal hernias. 6. Fat-containing left inguinal hernia. Electronically Signed by Yuriy Del Valle MD 02/28/2019 02:25 P
[2019-02-28] MEDS ORDERED: MULT1TAB83 PO (15:38)
[2019-02-28] MEDS ORDERED: HM S0.65 NARES (15:38)
--- NOTE | 2019-02-28 16:46 | ECGEPIP ---
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
[2019-02-28] MEDS ORDERED: GLUCOSE 4 GM CHEW TABLET PO PRN (17:15)
[2019-02-28] MEDS ORDERED: GLUCAGON FOR INJ 1 MG VIAL (J1610) SC PRN (17:15)
[2019-02-28] MEDS ORDERED: DEXTROSE 50% 50 ML SYRINGE IV PRN (17:15)
[2019-02-28] MEDS: HumaLOG INSULIN (NovoLOG) PER UNIT SC SCH (17:30)
[2019-02-28 17:55] VITALS: BP 105/67
[2019-02-28] MEDS: NS 1,000 ML IV SCH (18:08)
[2019-02-28] MEDS: MORPHINE 4 MG/ML 1ML VIAL/SYRINGE (J2270) IV PRN (18:47)
[2019-02-28] MEDS: traZODone 50 MG TAB PO SCH (20:56)
[2019-02-28] MEDS: DOCUSATE SODIUM 100 MG CAP PO SCH (20:56)
[2019-02-28] MEDS: RIVAROXABAN 15 MG TAB (XARELTO) PO SCH (20:56)
[2019-02-28] MEDS: CLOPIDOGREL 75 MG TAB PO SCH (20:56)
[2019-02-28] MEDS: CARVedilol 12.5 MG TAB PO SCH (20:56)
[2019-02-28] MEDS ORDERED: ROSUVASTATIN 10 MG TAB (CRESTOR) PO SCH (21:00)
[2019-02-28] MEDS ORDERED: HumaLOG INSULIN (NovoLOG) PER UNIT SC SCH (21:00)
[2019-02-28 22:00] VITALS: BP_SYST 113; BP_SYST 152; BP_DIAS 57; BP_DIAS 93
[2019-03-01] MEDS ORDERED: MORPHINE 4 MG/ML 1ML VIAL/SYRINGE (J2270) IV ONE ×2 (00:15→17:45)
[2019-03-01] MEDS: NS 1,000 ML IV SCH ×3 (03:52→23:00)
[2019-03-01 06:00] VITALS: BP 110/60
[2019-03-01 06:34] LABS: HEMATOCRIT 27.5 % (42.0-52.0); HEMOGLOBIN 8.6 g/dl (13.5-17.5); MEAN CORPUSCULAR HEMOGLOBIN 30.2 pg (27.0-33.0); MEAN CORPUSCULAR HGB CONC 31.3 g/dl (32.0-36.5); MEAN CORPUSCULAR VOLUME 96.5 fl (80.0-96.0); PLATELET COUNT, AUTOMATED 140 10^3/uL (150-450); RED BLOOD COUNT 2.85 10^6/uL (4.30-6.10)
[2019-03-01 06:52] LABS: CALCIUM LEVEL 8.3 MG/DL (8.8-10.2); CREATININE FOR GFR 1.71 MG/DL (0.70-1.30); GLOMERULAR FILTRATION RATE 42.3 (>42); MAGNESIUM LEVEL 2.2 MG/DL (1.8-2.4); POTASSIUM SERUM 3.9 MEQ/L (3.5-5.1)
[2019-03-01] MEDS: HumaLOG INSULIN (NovoLOG) PER UNIT SC SCH ×3 (07:30→18:00)
[2019-03-01] MEDS: MORPHINE 4 MG/ML 1ML VIAL/SYRINGE (J2270) IV PRN ×3 (07:31→21:50)
[2019-03-01] MEDS: DOCUSATE SODIUM 100 MG CAP PO SCH ×2 (08:21→21:42)
[2019-03-01] MEDS: EZETIMIBE 10 MG TAB (ZETIA) PO SCH (08:21)
[2019-03-01] MEDS: ALLOPURINOL 300 MG TAB PO SCH (08:21)
[2019-03-01] MEDS: CARVedilol 12.5 MG TAB PO SCH ×2 (08:21→21:42)
[2019-03-01] MEDS: ONDANSETRON 4MG/2ML VIAL (J2405) IV PRN (09:01)
[2019-03-01] MEDS ORDERED: FLEET ENEMA PR ONE (10:30)
--- NOTE | 2019-03-01 10:48 | CR.PDOC ---
General Surgery Consultation Date of Consultation 03/01/19 History and Physical CONSULT REPORT FOR: Lynne Quiroz DO REASON FOR CONSULTATION: abdominal pain, vomiting HISTORY OF PRESENT ILLNESS: Patient is a 68-year-old male admitted yesterday f rom the emergency room after presenting to the ER for abdominal distention, abdominal cramping. He reports that symptoms started roughly evening. Last bowel movement was Friday morning. He reports normal almost daily BMs that are well formed. He does take stools softeners. He denies any prior history of bowel obstruction. He started having crampy lower abdominal discomfort that he reports is steady discomfort with periods of exacerbatin. He reports not passing any flatus or having any bowel movements since the last one he had last Friday. He denies any fevers, chills, sick contacts. In the ER he was evaluated and a CT scan of the abdomen and pelvis done and was found to have moderately distended colon along with acute changes of his renal function and thus was admitted to the hospitalist service. This morning he had a couple episodes of vomiting and continues to have crampy lower quadrant abdominal pain and thus I was asked to see and evaluate the patient. The ER physician has spoken to the recreational therapy aide surgeon last night. He reports his last colonoscopy was in 2006. He had some polyps removed. He has not had a chance to pursue repeat colonoscopy as he has had several major medical problems that he has to deal with. PAST MEDICAL HISTORY: 1. Hypertension. 2. Diabetes. 3. Coronary artery disease. 4. History of diverticulosis. 5. Obstructive sleep apnea on C-PAP. 6. Aortic valve disease status post aortic valve repair at [facility]. 7. Gout. 8. Osteoarthritis. 9. Chronic kidney disease (CKD) stage III. 10. Polymyalgia rheumatica. 11. Sensory peripheral neuropathy. 12. Left foot drop. 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 14. Persistent A-fib. PAST SURGICAL HISTORY: INCLUDES: 1. Tonsillectomy. 2. Coronary artery bypass grafting (CABG) in 1988, 1993. 3. Coronary stents in 2001, 2016 and 2017. 4. Transcatheter aortic valve replacement (TAVR) in November 2017. 5. Right total knee replacement in 2013. 6. Left total knee replacement in July 2016. 7. Left temporal artery biopsy October 2016. 8. History of ablation in August 2018. 9. Stent placement in December 2018. PREVIOUS ANESTHESIA REACTIONS: denies ALLERGIES: Please see below. FAMILY HISTORY: Denies any family history for colorectal malignancy or inflammatory bowel disease. HOME MEDICATIONS: Please see below. REVIEW OF SYSTEMS: GENERAL: Patient symptoms about 5 days duration. He reports about 10 pound weight loss which is voluntary HEENT: Denies blurred vision and double vision. Denies ear symptoms. Denies hoarseness. NECK: Denies any neck pain CARDIOVASCULAR: Significant cardiac history as mentioned in the past medical history. Currently denies any ongoing chest discomfort. He remains in atrial fibrillation. MUSCULOSKELETAL: Reports shoulder pains, joint pains. He was diagnosed with polymyalgia rheumatica and was previously maintained on varying doses of prednisone. Prednisone has been discontinued for about a month now. SKIN: Denies rash. NEUROLOGIC: Denies headache, stroke and transient ischemic attack. PSYCHIATRIC: Denies anxiety and depression. ENDOCRINE: Denies thyroid disease. HEMATOLOGY/ONCOLOGY: Denies bleeding or clotting disorder. Patient is on Plavix and Xarelto PULMONARY: Denies chronic cough, dyspnea and wheezing. GASTROINTESTINAL: See HPI GENITOURINARY: Denies dysuria, frequency, hematuria and nocturia. ENDOCRINE: Denies polydipsia, polyphagia, polyuria, heat or cold intolerance. INFECTIOUS: Denies any recent upper respiratory tract infection, UTI, need for use of antibiotics. NUTRITION: Reports generally good appetite, has not been feeling hungry for the past 4 days. PHYSICAL EXAMINATION: VITALS SIGNS: Please see below. GENERAL APPEARANCE: Patient seen laying on bed, he is cooperative. He looks fairly comfortable this time that I saw him. SKIN: Warm and moist. HEENT: Normocephalic, atraumatic. Orchid palpebral conjunctiva, anicteric sclerae . Lips and mucosa appear moist. NECK: Supple, no thyromegaly. No obvious jugular venous distention. LUNGS: Clear to auscultation bilaterally. No wheezing appreciated. HEART: No chest wall abnormalities. irregular rhythm, regular rate roughly between 60 and 70. ABDOMEN: Abdomen is mildly distended, soft, mildly tympanitic to percussion. He has prominent supraumbilical hernia that is nonreducible. Overlying this is a vertical midline incision. (He tells me the abdominal incision was part of his open heart surgery which didn't extend to the abdomen). Mild tenderness over the left side of the abdomen without any rebound or guarding EXTREMITIES: Extremities have no deformities. No edema identified ANCILLARIES: . LABORATORY DATA: Please see below. IMAGING STUDIES: CT abdomen and pelvis 1. Cholelithiasis. 2. Bilateral renal cysts. 3. Diverticulosis. 4. There is moderate distention of the colon from the cecum to the mid descending colon. A mass at this level cannot be excluded. 5. There are bilateral fat-containing ventral abdominal hernias. 6. Fat-containing left inguinal hernia. IMPRESSION AND PLAN: Possible colon obstruction as demonstrated in the CT with some associated mild small bowel distention that I could appreciate on the most recent KUB done this morning may be secondary to ileus or backing up of the colonic gas. No free air both on the CT and KUB done this morning. Clinically patient does not have any peritonitis nor evidence for severe systemic inflammatory response secondary to this. Patient seen and examined on 03/01/2019 approximately 10:40 AM. Overall looks comfortable. His abdomen looks mildly distended. He had some mild tenderness over the left lower quadrant area on deep palpation without guarding. He does not have any peritonitis. He has had a KUB done showing some mild generalized relation of the small bowel in a more pronounced dilation of the colon. He does have a good amount of stool on the right side of the colon. I reviewed his CT imaging studies with him and explained to them that he might have some sort of colon obstruction on the left side of the colon as her some abrupt change in caliber of the colon at the sigmoid colon level. To verify colon obstruction and I will get a barium enema, hopefully today. I'll give him a dose of fleets enema to clear some of the stools in the rectum. His last colonoscopy was back in 2006 is never been repeated due to other medical problems that include his aortic valve and atrial fibrillation. I told him he may need to have colonoscopy done either during this admission or later depending on the results of the barium enema and his clinical course (improvement or no improvement) Vital Signs Vital Signs Date Time Temp Pulse Resp B/P (MAP) Pulse Ox O2 Delivery O2 Flow Rate FiO2 03/01/19 08:21 64 120/51 03/01/19 07:41 16 03/01/19 06:00 97.6 93 02/28/19 14:45 Room Air I&Os I&O- Last 24 Hours up to 6 AM 03/01/19 06:00 Intake Total 1375 ml Output Total 0 ml Balance 1375 ml Laboratory Data Labs 24H Laboratory Tests 2 02/28/19 11:16: Immature Granulocyte % (Auto) 0.3, White Blood Count 7.3, Red Blood Count 3.33L, Hemoglobin 10.3L, Hematocrit 31.7L, Mean Corpuscular Volume 95.2, Mean Corpuscular Hemoglobin 30.9, Mean Corpuscular Hemoglobin Concent 32.5, Red Cell Distribution Width 15.9H, Platelet Count 171, Neutrophils (%) (Auto) 74.1H, Lymphocytes (%) (Auto) 14.0L, Monocytes (%) (Auto) 9.0H, Eosinophils (%) (Auto) 2.2, Basophils (%) (Auto) 0.4, Neutrophils # (Auto) 5.4, Lymphocytes # (Auto) 1.0L, Monocytes # (Auto) 0.7, Eosinophils # (Auto) 0.2, Basophils # (Auto) 0.0, Nucleated Red Blood Cells % (auto) 0.0, Anion Gap 7L, Glomerular Filtration Rate 34.0L, Calcium Level 9.0, Aspartate Amino Transf (AST/SGOT) 21, Alanine Aminotransferase (ALT/SGPT) 17, Alkaline Phosphatase 85, Total Bilirubin 0.8, Direct Bilirubin 0.2, Total Creatine Kinase 82, Creatine Kinase MB 2.0, Creatine Kinase MB Relative Index 1.83, Troponin I < 0.02, Total Protein 7.9, Albumin 3.5, Albumin/Globulin Ratio 0.80L, Lipase 72L 02/28/19 13:52: Urine Color YELLOW, Urine Appearance HAZY, Urine pH 5.0, Urine Specific [place] 1.009, Urine Protein NEGATIVE, Urine Glucose (UA) NEGATIVE, Urine Ketones NEGATIVE, Urine Blood 1+H, Urine Nitrite NEGATIVE, Urine Bilirubin NEGATIVE, Urine Urobilinogen 0.2, Urine Leukocyte Esterase NEGATIVE, Urine WBC (Auto) 1, Urine RBC (Auto) 5H, Urine Hyaline Casts (Auto) 7, Urine Bacteria (Auto) NEGATIVE, Urine Squamous Epithelial Cells 0, Urine Sperm (Auto) 03/01/19 05:52: Nucleated Red Blood Cells % (auto) 0.0, Anion Gap 6L, Glomerular Filtration Rate 42.3, Calcium Level 8.3L, Blood Urea Nitrogen 36H, Creatinine 1.71H, Sodium Level 145, Potassium Level 3.9, Chloride Level 114H, Carbon Dioxide Level 25, Magnesium Level 2.2 CBC/BMP Laboratory Tests 02/28/19 11:16 Red Blood Count 3.33 L, Mean Corpuscular Volume 95.2, Mean Corpuscular Hemoglobin 30.9, Mean Corpuscular Hemoglobin Concent 32.5, Red Cell Distribution Width 15.9 H, Neutrophils (%) (Auto) 74.1 H, Lymphocytes (%) (Auto) 14.0 L, Monocytes (%) (Auto) 9.0 H, Eosinophils (%) (Auto) 2.2, Basophils (%) (Auto) 0.4, Neutrophils # (Auto) 5.4, Lymphocytes # (Auto) 1.0 L, Monocytes # (Auto) 0.7, Eosinophils # (Auto) 0.2, Basophils # (Auto) 0.0 03/01/19 05:52 Red Blood Count 2.85 L, Mean Corpuscular Volume 96.5 H, Mean Corpuscular Hemoglobin 30.2, Mean Corpuscular Hemoglobin Concent 31.3 L, Red Cell Distrib ution Width 15.9 H, Calcium Level 8.3 L Home Medications Scheduled Allopurinol (Zyloprim) 300 Mg Tab, 300 MG PO DAILY, (Reported) Carvedilol (Carvedilol) 3.125 Mg Tab, 12.5 MG PO BID, (Reported) Clopidogrel Bisulfate (Plavix) 75 Mg Tab, 75 MG PO QHS, (Reported) Docusate Sodium (Colace) 100 Mg Capsule, 100 MG PO BID, (Reported) Ezetimibe (Zetia) 10 Mg Tablet, 10 MG PO DAILY, (Reported) Furosemide (Furosemide) 40 Mg Tab, 40 MG PO DAILY, (Reported) Icosapent Ethyl (Vascepa) 1 Gm Capsule, 2 GM PO BID, (Reported) Lisinopril (Lisinopril) 5 Mg Tab, 5 MG PO DAILY, (Reported) Multivitamin with Iron (Multivitamins with Iron) 1 Each Tablet, 1 TAB PO DAILY, (Reported) Rivaroxaban (Xarelto) 15 Mg Tab, 15 MG PO QHS, (Reported) Rosuvastatin Calcium (Rosuvastatin Calcium) 10 Mg Tablet, 10 MG PO QHS, (Reported) Trazodone HCl (Trazodone HCl) 50 Mg Tab, 50 MG PO QHS, (Reported) Ubidecarenone/Vit E Acet (Co Q-10 100 mg Softgel) 100 Mg Cap, 100 MG PO DAILY, (Reported) Scheduled PRN Sodium Chloride (Saline Nasal [place]) 44 Ml [place], 2 SPRAYS NARES Q2H PRN for NASAL DRYNESS, (Reported) Allergies Coded Allergies: No Known Allergies (Unverified , 05/28/14) ARNULFO PAYTON MD Mar 01, 2019 10:48
--- NOTE | 2019-03-01 10:59 | HPE ---
DATE OF ADMISSION: 02/28/2019 PRIMARY CARE PROVIDER: Jeff Peng MD HISTORY OF PRESENT ILLNESS: This patient is a 68-year-old male with a past medical history significant for coronary disease, hypertension, diabetes, obstructive sleep apnea (HANNY), aortic valve disease status post valvular replacement, chronic kidney disease, polymyalgia rheumatica, peripheral neuropathy, dermatitis herpetiformis, atrial fibrillation (A-fib), who presented to [facility] on February 28, 2019 with the complaint of lower mid left abdominal pain. The pain started since during rest which was approximately three days ago. The pain has been persistent and sharp without radiation. The patient does not know what will increase or decrease the pain. The patient started having nausea today. His last bowel movement was more than two days ago which was not usual for him, on a daily basis he has a bowel movement once daily. The patient stated he has had decreased oral intake. He has decreased urinary output for the past four days. ALLERGIES: No known drug allergies. PAST MEDICAL HISTORY: 1. Hypertension. 2. Diabetes. 3. Coronary artery disease. 4. History of diverticulosis. 5. Obstructive sleep apnea on C-PAP. 6. Aortic valve disease status post aortic valve repair at [facility]. 7. Gout. 8. Osteoarthritis. 9. Chronic kidney disease (CKD) stage III. 10. Polymyalgia rheumatica. 11. Sensory peripheral neuropathy. 12. Left foot drop. 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 14. Persistent A-fib. PAST SURGICAL HISTORY: 1. Tonsillectomy. 2. Coronary artery bypass grafting (CABG) in 1988, 1993. 3. Coronary stents in 2001, 2016 and 2017. 4. Transcatheter aortic valve replacement (TAVR) in November 2017. 5. Right total knee replacement in 2013. 6. Left total knee replacement in July 2016. 7. Left temporal artery biopsy October 2016. 8. History of ablation in August 2018. 9. Stent placement in December 2018. SOCIAL HISTORY: Denies alcohol or tobacco use. Drinks three beers weekly. No recreational drug use. REVIEW OF SYSTEMS: GENERAL: No fever, no chills. HEENT: No visual change, no auditory changes. CARDIOVASCULAR: No chest pain. No palpitations. RESPIRATORY: No shortness of breath, no cough, no sputum production. GASTROINTESTINAL (GI): Left lower abdominal pain started since last . The pain is sharp and persistent without radiation. MUSCULOSKELETAL: Intermittent muscle achiness in the upper and lower extremities. OBJECTIVE: VITAL SIGNS: Temperature 97.1, pulse 60, respirations 18, blood pressure 126/58, pulse oximetry 100% on room air. GENERAL: Mild distress secondary to persistent lower abdominal pain. The patient is alert, awake and oriented. HEENT: Normocephalic, atraumatic. Extraocular motor grossly intact. CARDIOVASCULAR: Positive systolic murmur, positive S1, S2. Irregularly irregular. LUNGS: Clear to auscultation bilaterally. ABDOMEN: Soft, no pain exacerbation with direct pressure. Abdomen is soft. Bowel sounds present. EXTREMITIES: No edema. NEUROLOGICAL: Sensation to fine touch grossly intact. Muscle strength 5/5. LABORATORY DATA: WBC 7.3, hemoglobin 10.3, hematocrit 31.7, platelet count 171. Sodium 142, potassium 4.1, chloride 109, Carbon dioxide 26, BUN 41, creatinine 2.07, GFR 34, fasting glucose 105, calcium 9, total bilirubin 0.8, direct bilirubin 0.2. AST 21, ALT 17, alkaline phosphatase 85. Total CK 82, troponin I is less than 0.02. Total protein 7.9, albumin 3.5. IMAGING STUDIES: CT of the abdomen and pelvis without contrast showed cholelithiasis, bilateral renal cysts. Diverticulosis. Moderate distention of the colon from the cecum to the descending colon. Mass at that level cannot be excluded. Bilateral fat containing a ventral abdominal hernias. Fat containing left inguinal hernia. ASSESSMENT AND PLAN: 1. Acute on chronic renal disease. At the baseline the patient has a creatinine around 1.27 last year. Currently the patient has a creatinine of 2.07. The patient demonstrates clinical sign of dehydration. According to the history the patient has had poor oral intake and decreased urine output so suspect the patient has prerenal azotemia from severe dehydration. The patient will be admitted to the Med-Surg under inpatient status. The patient will start on intravenous (IV) fluids support. The patients diuretic will be on hold. Continue to monitor the patient's fluid status. Urinalysis is negative. 2. Lower abdominal pain. CT of the abdomen and pelvis demonstrate moderate distention of the colon from the cecum to the mid descending colon. The patient's case was discussed with surgeon sail repair person, Dr. Thurston. Will continue under observation. The patient has a colonoscopy performed by Dr. Almaraz in 2006. The patient was found to have diverticulosis and hemorrhoids. 3. Coronary disease status post coronary artery bypass grafting times two and multiple stents placement. The patient is seen by Dr. Butler in the outpatient setting. Continue on carvedilol, Plavix, Crestor. 4. Atrial fibrillation, on Xarelto and Coreg. 5. Diabetes. On consistent carbohydrate diet, and insulin sliding scale. 6. Gout. Continue on allopurinol. 7. Obstructive sleep apnea. The patient may use his own C-PAP. 8. Aortic valve disease status post valve replacement. This was performed in [facility] in November 2017. 9. History of polymyalgia rheumatica. Continue to monitor. 10. History of dermatitis herpetiformis. Deep venous thrombosis (DVT) prophylaxis. On anticoagulation.
[2019-03-01 14:00] VITALS: BP 116/58
--- NOTE | 2019-03-01 15:16 | CR.PDOC ---
General Date of Consultation: Mar 01, [address] CAVAZOS HISTORY OF PRESENT ILLNESS: Mr. Orta is a 68 year old male with extensive cardiac history including ischemic cardiomyopathy, TAVR with bioprosthetic aortic valve, paroxysmal a. fib with ablation in 2018, occlusion and stenosis of right carotid artery, DLP, CABG x2, HTN and numerous cardiac cath procedures and cardiac stents who presented to the ED with the complaint of acute onset abdominal pain that began about 4 days ago. The patient stated that the abdominal pain continued to worsen. He states that his primary care doctor recently switched him from Lipitor to Crestor and he attributed the abdominal pain to this switch. He states he has not had a bowel movement since Friday morning and is no longer passing gas. He denies any chest pain, nausea vomiting, change in bowel habits but did note bright red blood on his toilet paper or in the toilet this morning likely secondary to his hemorrhoids he states. He denies seeing any blood in the stool or dark black stool. Denies any recent illness, cough or shortness of breath. He states he has been taking his Plavix and Xarelto as prescribed along with his other medications. He was recently discontinued off of prednisone 3 mg after a what sounds like 2 year taper for polymyalgia rheumatica. He did have CT abdomen performed in the ED that showed colonic distention from cecum area to mid descending colon. Cardiology was consulted given his extensive cardiac history. ALLERGIES: Please see below. HOME MEDICATIONS: Please see below. PAST MEDICAL HISTORY: Ischemic cardiomyopathy, bioprosthetic aortic valve replacement, paroxysmal atrial fibrillation, obesity, dyslipidemia, hypertension, coronary artery bypass graft 2, history of CAD with stent placement, gout PAST SURGICAL HISTORY: Coronary artery bypass graft in 1988 redo in 1992, right shoulder surgery, right hip surgery 2013, left knee replacement in 2015, TAVR 2017, most recent YAMILETH placement Dec 2018 YAMILETH in [facility]G to OM. SOCIAL HISTORY: He denies drug or tobacco use REVIEW OF SYSTEMS: CONSTITUTIONAL: The patient reports feeling a bit fatigued today, he does state his abdomen is a bit uncomfortable and achy throughout. HEENT: Denies any change in vision, no headaches CARDIOVASCULAR: No chest pain, palpitations or syncope RESPIRATORY: No cough, wheeze or shortness of breath. GENITOURINARY: No pain with urination, blood in urine GASTROINTESTINAL: Did notice some bright red blood in the toilet water and on th e toilet paper this morning he attributes to hemorrhoids, no dark black stool nor blood mixed in his stool SKIN: No new rashes PHYSICAL EXAMINATION: VITAL SIGNS: Please see below. GENERAL APPEARANCE: A 68-year-old gentleman who appears his stated age laying in bed, appears a bit fatigued but otherwise well, no acute distress HEENT: Nares patent bilaterally, moist mucous membranes, EOMI, NG tube in place with bile content being drained RESPIRATORY: No wheezing, rales, rhonchi appreciated, CTA throughout CARDIOVASCULAR: Normal S1 and S2, no rubs or gallops appreciated, diastolic murmur appreciated ABDOMEN: Soft, nondistended, no rebound rigidity, a bit tender to palpitation throughout, there is a midline sternal extending to umbilical scar that he states was from his open heart surgery, NABS 4, no hepatosplenomegaly or masses EXTREMITIES: No swelling, cyanosis or mottling NEUROLOGICAL: No deficits LABORATORY DATA: Please see below. ASSESSMENT/PLAN: This is a 68-year-old male with an extensive cardiac past medical history who presented to the emergency department with a complaint of acute onset of abdominal pain and found to have diffuse colonic distention on CT abdomen. 1. Diffuse colonic distention with history of TAVR, CABGx2 and multiple PCI with YAMILETH placement It appears that Gen. surgery has been consulted, plan is for barium enema tomorrow. Agree with this, as this patient would benefit from less invasive procedures. Unsure if a mass could cause such an acute episode of abdominal pain, differential diagnosis could be broadened to include mesenteric ischemia. Unfortunately the patient recently had another stent placed in December 2018 in [facility] to . He admits that he had a colonoscopy 12 years ago but was unable to have another one performed due to his extensive cardiac history. His last clinic note with cardiology was reviewed, January 2019. We will touch base with general surgery to see what their thoughts are on what could possibly be causing this colonic distention. If the patient will need his Plavix stopped for longer than 48 hours, would suggest transferring him to [place] as the risk of stenosis to his new stent is very high being so soon after stent placement (YAMILETH SV to ). He does have a loop recorder that was last checked February 23 that showed no atrial fibrillation but some PAC and PVCs. His last echocardiogram was in September 2018 that showed an ejection fraction of 55% with severe left atrial enlargement mild pulmonary hypertension and mild aortic insufficiency due to his TAVR. Would suggest less invasive procedure for him such as barium enema to hopefully determine etiology of colonic distention. He could begin lovenox if his creatine is acceptable if he needs a more invasive procedure that would require him to come off of Eliquis but would continue with minimal invasive procedures for now. We will follow along with you in the care of this patient and continue to give further recommendations. He should continue on his xarelto and plavix, we will await barium enema results tomorrow before offering further recommendations. Addendum MD Elvie: Patient seen and examined, chart reviewed. I agree in principle with 's note. Briefly a 68yo man with numerous condition outlined above presenting with possible colonic obstruction. Etiology unclear at this point. I have no objection to hold or d/c Xarelto but if Plavix needs to be discontinued then my recommendation would be to transfer patient to [place] - he has new YAMILETH in [place] to (since December) and risk of stent thrombosis is relatively high. He would be better off in facility with dental laboratory assistant. Vital Signs/I&O Vital Signs Date Time Temp Pulse Resp B/P (MAP) Pulse Ox O2 Delivery O2 Flow Rate FiO2 03/01/19 13:45 18 03/01/19 08:21 64 120/51 03/01/19 06:00 97.6 93 02/28/19 14:45 Room Air I&O- Last 24 Hours up to 6 AM 03/01/19 06:00 Intake Total 1375 ml Output Total 0 ml Balance 1375 ml Laboratory Data Labs 24H Laboratory Tests 2 03/01/19 05:52: Nucleated Red Blood Cells % (auto) 0.0, Anion Gap 6L, Glomerular Filtration Rate 42.3, Blood Urea Nitrogen 36H, Creatinine 1.71H, Sodium Level 145, Potassium Level 3.9, Chloride Level 114H, Carbon Dioxide Level 25, Calcium Level 8.3L, Magnesium Level 2.2 03/01/19 11:03: Lactic Acid Level 1.1 CBC/BMP Laboratory Tests 03/01/19 05:52 Red Blood Count 2.85 L, Mean Corpuscular Volume 96.5 H, Mean Corpuscular Hemoglobin 30.2, Mean Corpuscular Hemoglobin Concent 31.3 L, Red Cell Distribution Width 15.9 H, Calcium Level 8.3 L Allergies Coded Allergies: No Known Allergies (Unverified , 05/28/14) Home Medications Scheduled Allopurinol (Zyloprim) 300 Mg Tab, 300 MG PO DAILY, (Reported) Carvedilol (Carvedilol) 3.125 Mg Tab, 12.5 MG PO BID, (Reported) Clopidogrel Bisulfate (Plavix) 75 Mg Tab, 75 MG PO QHS, (Reported) Docusate Sodium (Colace) 100 Mg Capsule, 100 MG PO BID, (Reported) Ezetimibe (Zetia) 10 Mg Tablet, 10 MG PO DAILY, (Reported) Furosemide (Furosemide) 40 Mg Tab, 40 MG PO DAILY, (Reported) Icosapent Ethyl (Vascepa) 1 Gm Capsule, 2 GM PO BID, (Reported) Lisinopril (Lisinopril) 5 Mg Tab, 5 MG PO DAILY, (Reported) Multivitamin with Iron (Multivitamins with Iron) 1 Each Tablet, 1 TAB PO DAILY, (Reported) Rivaroxaban (Xarelto) 15 Mg Tab, 15 MG PO QHS, (Reported) Rosuvastatin Calcium (Rosuvastatin Calcium) 10 Mg Tablet, 10 MG PO QHS, (Reported) Trazodone HCl (Trazodone HCl) 50 Mg Tab, 50 MG PO QHS, (Reported) Ubidecarenone/Vit E Acet (Co Q-10 100 mg Softgel) 100 Mg Cap, 100 MG PO DAILY, (Reported) Scheduled PRN Sodium Chloride (Saline Nasal [place]) 44 Ml [place], 2 SPRAYS NARES Q2H PRN for NASAL DRYNESS, (Reported) GME ATTESTATION GME ATTESTATION My faculty preceptor for this patient encounter was physically present during the encounter and was fully available. All aspects of the patient interview, examination, medical decision making process, and medical care plan development were reviewed and approved by the faculty preceptor. The faculty preceptor is aware and concurs with the plan as stated in the body of this note and will attest to such by his/her cosignature. LAKESHA RONDON DO Mar 01, 2019 15:16 Zander Cavazos MD Mar 01, 2019 20:52
--- NOTE | 2019-03-01 16:57 | IPN ---
DATE: 03/01/2019 SUBJECTIVE: The patient is seen and examined in the room today. The patient continues to complain about significant mid left lower abdominal pain and the pain has been persistent. IV pain medication helps relieve some of the pain. However, the patient continues to have significant nausea and vomiting. Denies any fever or chills. OBJECTIVE: VITAL SIGNS: Temperature is 97.6, pulse is 65, respiratory rate 16, blood pressure 110/60, pulse oximetry 93% in room air. GENERAL: Moderate distress secondary to persistent lower abdominal pain, alert and awake. CARDIOVASCULAR: Positive S1, S2, positive murmur. LUNGS: Clear to auscultation bilaterally. ABDOMEN: Some discomfort to palpation in the mid left lower abdomen. EXTREMITIES: No edema. LABORATORY DATA: WBC is 5, hemoglobin 8.6, hematocrit 27.5, platelet count is 140. Sodium is 145, potassium 3.9, chloride is 114, carbon dioxide 25, BUN 36, creatinine is 1.71, GFR is 42.3, fasting glucose 81, calcium 8.3, magnesium 2.2. ASSESSMENT AND PLAN: 1. Colonic distension. The patient has been having frequent nausea and vomiting. Pain medication is given through the IV route. The patient has also been receiving IV Zofran. I have consulted general surgery. We appreciate their input. Currently, the patient is on IV fluid. Order for nasogastric (NG) tube was placed. The patient will get a kidney, ureter and bladder (KUB) today. The patient will have a barium study tomorrow. Due to extensive cardiac history, the patient's basin cleaner, Dr. Butler, is consulted. According to the patient, the patient has a very significant cardiac history and the patient is a high risk patient. 2. History of coronary artery disease, status post coronary artery bypass graft (CABG) times two, status post multiple stent placements. Most recent stent placement was performed earlier this year. The patient has been taking Plavix and Xarelto. Radiation Control Technician consulted. 3. Diabetes, on sliding scale. The patient is currently nothing by mouth. 4. Obstructive sleep apnea (HANNY), on continuous positive airway pressure (CPAP). 5. Aortic valvular disease, status post aortic valve replacement in [facility]. 6. Gout, on allopurinol. 7. Acute renal failure on chronic kidney disease. The patient has had very poor oral intake and the patient is on IV support. The patient's diuretic is on hold at this moment. Renal function has been improving since admission. 8. Polymyalgia rheumatica. 9. History of atrial fibrillation. The patient is on Xarelto and Coreg. 10. Deep vein thrombosis (DVT) prophylaxis. The patient is on Xarelto.
--- NOTE | 2019-03-01 19:42 | REP ---
KUB ABDOMEN AND PELVIS: KUB film of the abdomen and pelvis was performed. Air is seen throughout the GI tract. There is mild diffuse distension of small bowel loops. Correlating with the CT abdomen and pelvis from 02/28/2019 this could indicate a partial obstruction at the level of the sigmoid colon. Metallic wires and clips are seen overlying the upper abdomen. There are diffuse degenerative changes of the spine. There is a metallic right hip prosthesis. Electronically Signed by Adonay Sifuentes MD 03/03/2019 10:19 A
[2019-03-01] MEDS ORDERED: ROSUVASTATIN 10 MG TAB (CRESTOR) PO SCH (21:00)
[2019-03-01] MEDS: traZODone 50 MG TAB PO SCH (21:42)
[2019-03-01] MEDS: CLOPIDOGREL 75 MG TAB PO SCH (21:42)
[2019-03-01] MEDS: RIVAROXABAN 15 MG TAB (XARELTO) PO SCH (21:43)
[2019-03-01 22:00] VITALS: BP 122/70
[2019-03-02] MEDS ORDERED: D10W 1,000 ML IV ONE (00:15)
[2019-03-02] MEDS: MORPHINE 4 MG/ML 1ML VIAL/SYRINGE (J2270) IV PRN ×4 (03:13→17:03)
[2019-03-02 06:00] VITALS: BP 110/60
[2019-03-02] MEDS ORDERED: FLEET ENEMA PR ONE (06:00)
[2019-03-02] MEDS: HumaLOG INSULIN (NovoLOG) PER UNIT SC SCH ×4 (06:00→16:35)
[2019-03-02 06:05] LABS: HEMATOCRIT 27.4 % (42.0-52.0); HEMOGLOBIN 8.7 g/dl (13.5-17.5); MEAN CORPUSCULAR HEMOGLOBIN 30.9 pg (27.0-33.0); MEAN CORPUSCULAR HGB CONC 31.8 g/dl (32.0-36.5); MEAN CORPUSCULAR VOLUME 97.2 fl (80.0-96.0); PLATELET COUNT, AUTOMATED 137 10^3/uL (150-450); RED BLOOD COUNT 2.82 10^6/uL (4.30-6.10); WHITE BLOOD COUNT 5.6 10^3/uL (4.0-10.0)
[2019-03-02 06:30] LABS: CALCIUM LEVEL 8.5 MG/DL (8.8-10.2); CREATININE FOR GFR 1.39 MG/DL (0.70-1.30); GLOMERULAR FILTRATION RATE 53.8 (>42); MAGNESIUM LEVEL 2.1 MG/DL (1.8-2.4); POTASSIUM SERUM 3.8 MEQ/L (3.5-5.1)
[2019-03-02 08:00] VITALS: BP 118/60
--- NOTE | 2019-03-02 08:31 | IPNPDOC ---
Text Note Date of Service The patient was seen on 03/02/19. NOTE No acute events overnight. He is still having lower abd pains, and is passing some flatus. The barium enema was held off until this am. VSSAF NAD abd - soft, TTP lower abdomen only, upper abdomen is slightly distended with two large nonreducible incisional hernias. labs - below A) 68y/o male with large bowel obstruction due to unknown source CAD P) NPO except ice and water NGT to LIS barium enema today ambulate will plan on colonoscopy pending the results of the barium enema If he needs any surgical intervention then he will need to be transferred to [place] for cardiac reasons. Will follow. Cristóbal Thurston DO A-FIB/CHADSVASC A-FIB History Current/History of A-Fib/PAF?: Yes Current Oral Anticoagulant The: Yes VS,Fishbone, I+O VS, Fishbone, I+O Laboratory Tests 03/02/19 05:44 Red Blood Count 2.82 L, Mean Corpuscular Volume 97.2 H, Mean Corpuscular Hemoglobin 30.9, Mean Corpuscular Hemoglobin Concent 31.8 L, Red Cell Distribution Width 15.9 H, Calcium Level 8.5 L Vital Signs Date Time Temp Pulse Resp B/P (MAP) Pulse Ox O2 Delivery O2 Flow Rate FiO2 03/02/19 08:20 20 03/02/19 06:00 97.7 67 110/60 (77) 95 02/28/19 14:45 Room Air I&O- Last 24 Hours up to 6 AM 03/02/19 06:00 Intake Total 2150 ml Output Total 1120 ml Balance 1030 ml CECI THURSTON DO Mar 02, 2019 08:31
[2019-03-02] MEDS: DOCUSATE SODIUM 100 MG CAP PO SCH ×3 (09:29→22:31)
[2019-03-02] MEDS: ALLOPURINOL 300 MG TAB PO SCH (09:29)
[2019-03-02] MEDS: CARVedilol 12.5 MG TAB PO SCH ×2 (09:29→22:30)
[2019-03-02] MEDS: EZETIMIBE 10 MG TAB (ZETIA) PO SCH (09:30)
--- NOTE | 2019-03-02 10:03 | IPNPDOC ---
Subjective Date Seen The patient was seen on 03/02/19. Subjective Chief Complaint/HPI ab pain General: Reports: Fatigue; Denies: Chills Constitutional: Reports: Weakness Pulmonary: Denies: Dyspnea, Cough Cardiovascular: Reports: Chest Pain, Lt Headedness; Denies: Palpitations, Orthopnea Gastrointestinal: Reports: Nausea, Abdominal Pain; Denies: Vomiting, Diarrhea, Constipation, Melena, Hematochezia Neurological: Reports: Weakness Psych: Reports: Mood Normal Objective Physical Examination General Exam: Positive: Cooperative, Other (ngt with low intermittent suction with green bile products) Chest Exam: Positive: Rhonchi, Diminished; Negative: Rales, Wheezing Heart Exam: Positive: Rate Normal, Normal S1, Normal S2; Negative: Gallops, Murmurs, Rubs Abdomen Exam: Positive: Normal bowel sounds, Soft; Negative: Tenderness, Hepatospenomegaly, Mass Extremity Exam: Negative: Clubbing, Cyanosis, Edema Psych Exam: Positive: Oriented x 3 A-FIB/CHADSVASC A-FIB History Current/History of A-Fib/PAF?: No Current Oral Anticoagulant The: Yes Assessment /Plan Assessment CARDIOLOGY PROGRESS NOTE FOR DR CAVAZOS ASSESSMENT/PLAN: This is a 68-year-old male with an extensive cardiac past medical history who presented to the emergency department with a complaint of acute onset of abdominal pain and found to have diffuse colonic distention on CT abdomen. 1. Diffuse colonic distention with history of TAVR, CABGx2 and multiple PCI with YAMILETH placement It appears that Gen. surgery has been consulted, plan is for barium enema today. Agree with this, as this patient would benefit from less invasive procedures given extensive cardiac history. Unfortunately the patient recently had another cardiac stent placed in December 2018 with YAMILETH [facility]G to . If the patient will need his Plavix stopped for longer than 48 hours (for colonoscopy with potential biopsy), would suggest transferring him to [place] as the risk of stenosis to this new stent is very high being so soon after placement. He does have a loop recorder that was last checked February 23 that showed no atrial fibrillation but some PAC and PVCs. His last echocardiogram was in September 2018 that showed an ejection fraction of 55% with severe left atrial enlargement mild pulmonary hypertension and mild aortic insufficiency due to his TAVR. His xarelto has been discontinued. He could begin lovenox if his creatine is acceptable if he needs a more invasive procedure, however again would strongly recommend he be transferred to facility with onsite cath. lab before any potential invasive procedures took place. His was at bedside today and stated that although his rate was in the 70's that is fast for him, he usually is in the 50's as she knows, we will order EKG now to evaluate rhythm. He admits he passed small amount of gas today. We will follow along with you in the care of this patient and continue to give further recommendations. Plan/VTE VTE Prophylaxis Ordered?: Yes VS, I&O, 24H, Fishbone Vital Signs/I&O Vital Signs Date Time Temp Pulse Resp B/P (MAP) Pulse Ox O2 Delivery O2 Flow Rate FiO2 03/02/19 09:29 72 118/60 03/02/19 08:20 20 03/02/19 08:00 97.5 95 02/28/19 14:45 Room Air I&O- Last 24 Hours up to 6 AM 03/02/19 06:00 Intake Total 2150 ml Output Total 1120 ml Balance 1030 ml Laboratory Data 24H LABS Laboratory Tests 2 03/01/19 11:03: Lactic Acid Level 1.1 03/02/19 00:06: Bedside Glucose (Misc Panel) 71L 03/02/19 05:44: Nucleated Red Blood Cells % (auto) 0.0, Anion Gap 4L, Glomerular Filtration Rate 53.8, Blood Urea Nitrogen 31H, Creatinine 1.39H, Sodium Level 144, Potassium Level 3.8, Chloride Level 116H, Carbon Dioxide Level 24, Calcium Level 8.5L, Magnesium Level 2.1 CBC/BMP Laboratory Tests 03/02/19 05:44 Red Blood Count 2.82 L, Mean Corpuscular Volume 97.2 H, Mean Corpuscular Hemoglobin 30.9, Mean Corpuscular Hemoglobin Concent 31.8 L, Red Cell Distribution Width 15.9 H, Calcium Level 8.5 L GME ATTESTATION GME ATTESTATION My faculty preceptor for this patient encounter was physically present during the encounter and was fully available. All aspects of the patient interview, examination, medical decision making process, and medical care plan development were reviewed and approved by the faculty preceptor. The faculty preceptor is aware and concurs with the plan as stated in the body of this note and will attest to such by his/her cosignature. LAKESHA RONDON DO Mar 02, 2019 10:03
[2019-03-02] MEDS ORDERED: LIQUID POLIBAR PLUS 105% w/v 1900ML BTL As Ordered ONE (10:06)
[2019-03-02] MEDS: NS 1,000 ML IV SCH ×2 (11:16→17:02)
[2019-03-02] MEDS: ONDANSETRON 4MG/2ML VIAL (J2405) IV PRN ×2 (11:16→21:23)
--- NOTE | 2019-03-02 12:30 | IPNPDOC ---
Text Note Date of Service The patient was seen on 03/02/19. NOTE SUBJECTIVE: Patient seen and examined at bedside. No acute overnight events r eported. Still has some abdominal pain. OBJECTIVE: General: NAD HEENT: NC/AT Lung: CTA B/L Heart: +S1S2, systolic murmur, irregular Abd: soft, +BS ASSESSMENT AND PLAN: #Colonic distension - large bowel obstruction - surgical c/s appreciated - plan for barium enema today - pending results - possible colonoscopy - pending further results, if surgery needed - transfer to [facility] for high risk surgery - morphine PRN pain control #CAD s/p CABG s/p recent PCI - cardiology c/s appreciated #TAVR #Diabetes, on sliding scale. The patient is currently nothing by mouth. #Obstructive sleep apnea (HANNY), on continuous positive airway pressure (CPAP). #Gout, on allopurinol. #ROSS/CKD - poor PO intake - continue IVF, holding diuretics #PMR #History of atrial fibrillation. The patient is on Xarelto and Coreg. #Deep vein thrombosis (DVT) prophylaxis. The patient is on Xarelto. Dispo: pending barium enema, possible colonoscopy; pending results, if surgery indicated - transfer to [facility] ADDENDUM - d/w surgery - sigmoid stenosis with possible proximal mass; needs transfer for high risk surgery; [facility] no beds available, [facility] - waiting call back VS,Carmine, I+O VS, Carmine, I+O Laboratory Tests 03/02/19 05:44 Red Blood Count 2.82 L, Mean Corpuscular Volume 97.2 H, Mean Corpuscular Hemoglobin 30.9, Mean Corpuscular Hemoglobin Concent 31.8 L, Red Cell Distribution Width 15.9 H, Calcium Level 8.5 L Vital Signs Date Time Temp Pulse Resp B/P (MAP) Pulse Ox O2 Delivery O2 Flow Rate FiO2 03/02/19 10:30 20 03/02/19 09:29 72 118/60 03/02/19 08:00 97.5 95 02/28/19 14:45 Room Air I&O- Last 24 Hours up to 6 AM 03/02/19 06:00 Intake Total 2150 ml Output Total 1120 ml Balance 1030 ml RAVI BENITEZ MD Mar 02, 2019 12:30
[2019-03-02 14:00] VITALS: BP 148/69
--- NOTE | 2019-03-02 21:44 | ECGEPIP ---
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
[2019-03-02 22:00] VITALS: BP 139/62
[2019-03-02] MEDS: traZODone 50 MG TAB PO SCH (22:30)
[2019-03-02] MEDS: CLOPIDOGREL 75 MG TAB PO SCH (22:30)
[2019-03-03] MEDS: MORPHINE 4 MG/ML 1ML VIAL/SYRINGE (J2270) IV PRN ×3 (00:16→10:11)
[2019-03-03] MEDS: NS 1,000 ML IV SCH (04:33)
[2019-03-03] MEDS ORDERED: MORPHINE 4 MG/ML 1ML VIAL/SYRINGE (J2270) IV ONE (04:45)
[2019-03-03 06:00] VITALS: BP 119/58
[2019-03-03 07:30] VITALS: BP 130/59
[2019-03-03 07:30] LABS: HEMOGLOBIN 8.5 g/dl (13.5-17.5); MEAN CORPUSCULAR HEMOGLOBIN 30.8 pg (27.0-33.0); MEAN CORPUSCULAR HGB CONC 31.5 g/dl (32.0-36.5); MEAN CORPUSCULAR VOLUME 97.8 fl (80.0-96.0); PLATELET COUNT, AUTOMATED 124 10^3/uL (150-450); RED BLOOD COUNT 2.76 10^6/uL (4.30-6.10); WHITE BLOOD COUNT 7.5 10^3/uL (4.0-10.0)
[2019-03-03] MEDS: HumaLOG INSULIN (NovoLOG) PER UNIT SC SCH ×2 (07:30)
--- NOTE | 2019-03-03 07:39 | IPNPDOC ---
Text Note Date of Service The patient was seen on 03/03/19. NOTE No acute events overnight. He is still having lower abd pains, and is passing some flatus. I reviewed the barium enema images, and spoke with the motorsports technician and the radiologist. There is a long segment of sigmoid stricture with the possibility of a mass at the proximal side of the stricture. VSSAF NAD abd - soft, TTP lower abdomen only, upper abdomen is slightly distended with two large nonreducible incisional hernias. labs - below A) 68y/o male with large bowel obstruction due to stricture from ischemia vs. malignancy CAD recent stent placement incisional hernias P) NPO except ice and water NGT to LIS ambulate I recommend diverting colostomy vs. colonic resection depending on cardiac clearance. However, due to high cardiac risk recommendation from cardiology is transfer to a facility with a clinical laboratory director. I support this decision, and will be available on an emergent basis if transfer is not possible. Cristóbal Thurston DO A-FIB/CHADSVASC A-FIB History Current/History of A-Fib/PAF?: Yes Current Oral Anticoagulant The: Yes VS,[place], I+O VS, Fishbone, I+O Laboratory Tests 03/03/19 06:58 Red Blood Count 2.76 L, Mean Corpuscular Volume 97.8 H, Mean Corpuscular Hemoglobin 30.8, Mean Corpuscular Hemoglobin Concent 31.5 L, Red Cell Distribution Width 16.3 H Vital Signs Date Time Temp Pulse Resp B/P (MAP) Pulse Ox O2 Delivery O2 Flow Rate FiO2 03/03/19 06:00 97.4 73 18 119/58 (78) 92 02/28/19 14:45 Room Air I&O- Last 24 Hours up to 6 AM 03/03/19 06:00 Intake Total 1990 ml Output Total 1315 ml Balance 675 ml CECI THURSTON DO March 03, 2019 07:39
[2019-03-03 07:57] LABS: CALCIUM LEVEL 8.7 MG/DL (8.8-10.2); CREATININE FOR GFR 1.35 MG/DL (0.70-1.30); GLOMERULAR FILTRATION RATE 55.6 (>42); MAGNESIUM LEVEL 2.1 MG/DL (1.8-2.4); POTASSIUM SERUM 3.8 MEQ/L (3.5-5.1)
[2019-03-03 09:14] VITALS: BP 130/59
[2019-03-03] MEDS: CARVedilol 12.5 MG TAB PO SCH (09:14)
[2019-03-03] MEDS: ALLOPURINOL 300 MG TAB PO SCH (09:14)
[2019-03-03] MEDS: EZETIMIBE 10 MG TAB (ZETIA) PO SCH (09:15)
--- NOTE | 2019-03-03 09:33 | REP ---
BARIUM ENEMA SINGLE CONTRAST The procedure was performed under the direct supervision of Dr. Sifuentes. The images were reviewed with Dr. Sifuentes. Liquid barium was instilled into the colon and retrograde flow. There is a long irregular stricture from the sigmoid to the mid descending colon. This may represent inflammatory versus ischemic changes. At the proximal end of the stricture there is an apple core appearance with shouldering. This may reflect neoplasm. Impression: There is a long irregular stricture from the sigmoid to the mid descending colon. This may represent inflammatory versus ischemic changes. At the proximal end of the stricture there is an apple core appearance with shouldering. This may reflect neoplasm. 1.1 minutes of fluoroscopy time was utilized for this procedure. Reviewed by LEENA Waddell 03/02/2019 04:57 P Electronically Signed by Adonay Sifuentes MD 03/03/2019 09:24 A
--- NOTE | 2019-03-03 13:16 | IPNPDOC ---
Text Note Date of Service The patient was seen on 03/03/19. NOTE CARDIOLOGY PROGRESS NOTE FOR DR CAVAZOS Mr. Orta was seen at rounds this morning, he reports he is still having some left mid to upper quadrant discomfort/ache. They had to replace his NGT for some reason so that also caused him some discomfort. He has had no CP nor SOB ove rnight. ROS: General: admits to some weakness and fatigue HEENT: No new headaches or change in vision GI/: some abdominal discomfort in left upper and mid quadrant, passing small amount of flatus Cardiac: No cp or palpitations Resp: No sob or wheezing nor cough Physical Exam: General: 68 year old male that appears his stated age, with NGT to LIS with dark green gastric contents draining HEENT: nares patent b/l, moist mucus membranes, neck supple Cardiac: normal s1 and s2, faint diastolic murmur, no rubs appreciated Resp: CTA b/l, no wheezing/rales or rhonchi appreciated ASSESSMENT/PLAN: This is a 68-year-old male with an extensive cardiac past medical history who presented to the emergency department with a complaint of acute onset of abdominal pain with diffuse colonic distension on imaging. 1. Diffuse colonic distention with history of TAVR, CABGx2 and multiple PCI with YAMILETH placement Barium enema was performed but not read by radiology. We have spoken to general surgery Dr Thurston, appears it may be a stricture secondary to mass or possible ischemia. He may need colonic resection or hemicolectomy. The patient is going to be transferred to [facility] today for further GI evaluation and we agree with this as he is a very high risk from a cardiac standpoint as he recently had YAMILETH placed SVG to in Dec 2018 and remains on clopidogrel. If the patient will need his Plavix stopped for longer than 48 hours, this could lead to stenosis of his newly placed cardiac stent, thus any sort of intervention should be performed with a facility that has cath. lab in house. His xarelto has been discontinued. He could begin lovenox if his creatine is acceptable if he needs a more invasive procedure, but this will be up to [facility], we have asked nursing staff to please not give him dose of clopidogrel today. Anticoagulation will be at discretion of physicians in [place] pending his clinical course. We did check an EKG yesterday as his thought his HR being into the 70's yesterday was fast for him (normally he is in the 50's) that just showed ventricular bigeminy which is not new for him. His overnight telemetry was reviewed that also showed the bigeminy. He admits he passed small amount of gas again today. We did speak to his Interventional radiologist in [place] who has performed his previous cardiac interventions and he is aware that he may be transferred today. There is a long segment of sigmoid stricture with the possibility of a mass at the proximal side of the stricture. A-FIB/CHADSVASC A-FIB History Current/History of A-Fib/PAF?: Yes VS,Fishbone, I+O VS, Fishbone, I+O Laboratory Tests 03/03/19 06:58 Red Blood Count 2.76 L, Mean Corpuscular Volume 97.8 H, Mean Corpuscular Hemoglobin 30.8, Mean Corpuscular Hemoglobin Concent 31.5 L, Red Cell Dis tribution Width 16.3 H, Calcium Level 8.7 L Vital Signs Date Time Temp Pulse Resp B/P (MAP) Pulse Ox O2 Delivery O2 Flow Rate FiO2 03/03/19 11:03 17 03/03/19 09:14 70 130/59 03/03/19 07:30 98.1 96 02/28/19 14:45 Room Air I&O- Last 24 Hours up to 6 AM 03/03/19 06:00 Intake Total 1990 ml Output Total 1315 ml Balance 675 ml GME ATTESTATION GME ATTESTATION My faculty preceptor for this patient encounter was physically present during the encounter and was fully available. All aspects of the patient interview, examination, medical decision making process, and medical care plan development were reviewed and approved by the faculty preceptor. The faculty preceptor is aware and concurs with the plan as stated in the body of this note and will attest to such by his/her cosignature. LAKESHA RONDON DO March 03, 2019 13:16
--- NOTE | 2019-03-03 15:19 | DS.PDOC ---
Discharge Summary General Date of Admission Feb 28, 2019 at 16:17 Date of Discharge 03/03/19 Specialist/Consultants Involve: CECI DEVINE DO Specialist/Consultants Involve Dr. Butler, cardiology Discharge Summary PROCEDURES PERFORMED DURING STAY: Barium enema ADMITTING DIAGNOSES: 1. abdominal pain DISCHARGE DIAGNOSES: 1. sigmoid colon stricture 2. large bowel obstruction 3. likely colonic mass PAST SURGICAL HISTORY: 1. Tonsillectomy. 2. Coronary artery bypass grafting (CABG) in 1988, 1993. 3. Coronary stents in 2001, 2016 and 2017. 4. Transcatheter aortic valve replacement (TAVR) in November 2017. 5. Right total knee replacement in 2013. 6. Left total knee replacement in July 2016. 7. Left temporal artery biopsy October 2016. 8. History of ablation in August 2018. 9. Stent placement in December 2018. COMPLICATIONS/CHIEF COMPLAINT: Abdominal Pain,Acute Renal Failure. HISTORY OF PRESENT ILLNESS: This patient is a 68-year-old male with a past medical history significant for CAD - CABGx2, recent YAMILETH in December 2018, HTN, DM, HANNY, aortic valve disease s/p TAVR, CKD, PMR, peripheral neuropathy, dermatitis herpetiformis, atrial fibrillation (A-fib), who presented to [facility] on February 28, 2019 with the complaint of lower mid left abdominal pain. The pain started since during rest which was approximately three days ago. The pain has been persistent and sharp without radiation, with no clear modifying factors. The patient also complained of nausea, poor oral intake and decreased urinary output. HOSPITAL COURSE: Patient was admitted for further evaluation and treatment. Imaging was suspicious for colon mass. Surgery and cardiology was consulted. He underwent barium enema which showed sigmoid stricture with possible proximal mass, possible filling defect. His surgery was deemed high risk by surgery and cardiology, with recommendations for transfer to tertiary care facility with cardiac rn cardiac cath. DISCHARGE MEDICATIONS: Please see below. ALLERGIES: Please see below. PHYSICAL EXAMINATION ON DISCHARGE: VITAL SIGNS: Please see below. General: NAD, lying comfortably in bed HEENT: NC/AT Abd: soft, +BS, tender Cardiac: irregular, systolic murmur LABORATORY DATA: Please see below. PROGNOSIS: Guarded ACTIVITY: [As tolerated]. DIET: NPO DISPOSITION: 68 Xfer Other. DISCHARGE INSTRUCTIONS: 1. Transfer to [facility] 2. Further direction as per receiving facility DISCHARGE CONDITION: [Stable]. TIME SPENT ON DISCHARGE: Greater than 30 minutes. Vital Signs/I&Os Vital Signs Date Time Temp Pulse Resp B/P (MAP) Pulse Ox O2 Delivery O2 Flow Rate FiO2 03/03/19 11:03 17 03/03/19 09:14 70 130/59 03/03/19 07:30 98.1 96 02/28/19 14:45 Room Air I&O- Last 24 Hours up to 6 AM 03/03/19 06:00 Intake Total 1990 ml Output Total 1315 ml Balance 675 ml Laboratory Data Labs 24H Laboratory Tests 2 03/02/19 16:16: Bedside Glucose (Misc Panel) 70L 03/02/19 23:35: Bedside Glucose (Misc Panel) 76L 03/03/19 06:58: Nucleated Red Blood Cells % (auto) 0.0, Anion Gap 4L, Glomerular Filtration Rate 55.6, Blood Urea Nitrogen 27H, Creatinine 1.35H, Sodium Level 147H, Potassium Level 3.8, Chloride Level 119H, Carbon Dioxide Level 24, Calcium Level 8.7L, Magnesium Level 2.1 03/03/19 07:28: Bedside Glucose (Misc Panel) 66L CBC/BMP Laboratory Tests 03/03/19 06:58 Red Blood Count 2.76 L, Mean Corpuscular Volume 97.8 H, Mean Corpuscular Hemoglobin 30.8, Mean Corpuscular Hemoglobin Concent 31.5 L, Red Cell Distribution Width 16.3 H, Calcium Level 8.7 L FSBS Laboratory Tests Test 03/02/19 16:16 03/02/19 23:35 03/03/19 07:28 Range/Units Bedside Glucose (Misc Panel) 70 76 66 83-110 MG/DL Discharge Medications Scheduled Allopurinol (Zyloprim) 300 Mg Tab, 300 MG PO DAILY, (Reported) Carvedilol (Carvedilol) 3.125 Mg Tab, 12.5 MG PO BID, (Reported) Docusate Sodium (Colace) 100 Mg Capsule, 100 MG PO BID, (Reported) Ezetimibe (Zetia) 10 Mg Tablet, 10 MG PO DAILY, (Reported) Furosemide (Furosemide) 40 Mg Tab, 40 MG PO DAILY, (Reported) Icosapent Ethyl (Vascepa) 1 Gm Capsule, 2 GM PO BID, (Reported) Lisinopril (Lisinopril) 5 Mg Tab, 5 MG PO DAILY, (Reported) Multivitamin with Iron (Multivitamins with Iron) 1 Each Tablet, 1 TAB PO DAILY, (Reported) Rosuvastatin Calcium (Rosuvastatin Calcium) 10 Mg Tablet, 10 MG PO QHS, (Reported) Trazodone HCl (Trazodone HCl) 50 Mg Tab, 50 MG PO QHS, (Reported) Ubidecarenone/Vit E Acet (Co Q-10 100 mg Softgel) 100 Mg Cap, 100 MG PO DAILY, (Reported) Scheduled PRN Sodium Chloride (Saline Nasal [place]) 44 Ml [place], 2 SPRAYS NARES Q2H PRN for NASAL DRYNESS, (Reported) Allergies Coded Allergies: No Known Allergies (Unverified , 05/28/14) RAVI BENITEZ MD March 03, 2019 15:19
== END 2019-03-03 11:14 | disposition short-term general hospital (02) | DRG 389 ==
LOC: M ED 10:57 → M ED INP 16:17 → M MSPAV 18:05
PROVIDERS: ADMIT Internal Medicine; ATTEND Internal Medicine
DX: K56.609 Unspecified intestinal obstruction, unspecified as to partial versus complete obstruction (principal); N17.9 Acute kidney failure, unspecified; I48.0 Paroxysmal atrial fibrillation; I12.9 Hypertensive chronic kidney disease with stage 1 through stage 4 chronic kidney disease, or unspecified chronic kidney disease; E11.42 Type 2 diabetes mellitus with diabetic polyneuropathy; G47.33 Obstructive sleep apnea (adult) (pediatric); N18.9 Chronic kidney disease, unspecified; M35.3 Polymyalgia rheumatica; L13.0 Dermatitis herpetiformis; M10.9 Gout, unspecified; M19.90 Unspecified osteoarthritis, unspecified site; M21.372 Foot drop, left foot; E86.0 Dehydration; I25.10 Atherosclerotic heart disease of native coronary artery without angina pectoris; I25.5 Ischemic cardiomyopathy; Z95.3 Presence of xenogenic heart valve; Z95.5 Presence of coronary angioplasty implant and graft; Z96.653 Presence of artificial knee joint, bilateral; Z79.01 Long term (current) use of anticoagulants; Z79.02 Long term (current) use of antithrombotics/antiplatelets; Z79.899 Other long term (current) drug therapy

== ENCOUNTER 2019-03-21 19:35 | Emergency (ER) | payer MEDICARE ==
[~2019-03-21] VITALS: Ht 177.8 cm; Wt 106.8 kg
[~2019-03-21 19:35] MED LIST changes: +HM S0.65 NARES; +MULT1TAB83 PO; +ROSU10TA5 PO; +VASC1CAP2 PO; +ZETI10TA30 PO
[2019-03-21] MEDS ORDERED: PLAV1TAB2 PO ×2 (20:04→20:05)
[2019-03-21] MEDS ORDERED: FERR325T3 PO (20:05)
[2019-03-21] MEDS ORDERED: ASPI81TA85 PO (20:06)
[2019-03-21 20:43] LABS: ALBUMIN 2.7 GM/DL (3.2-5.2); BASO % 0.3 % (0.0-1.0); BILIRUBIN,DIRECT 0.2 MG/DL (0.0-0.2); BILIRUBIN,TOTAL 0.6 MG/DL (0.2-1.0); CALCIUM LEVEL 8.9 MG/DL (8.8-10.2); CREATININE FOR GFR 1.84 MG/DL (0.70-1.30); EOS # 0.3 10^3/uL (0.0-0.50); GLOMERULAR FILTRATION RATE 38.9 (>42); HEMATOCRIT 24.4 % (42.0-52.0); LYMPH # 1.5 10^3/uL (1.5-4.5); LYMPH % 17.6 % (24.0-44.0); MEAN CORPUSCULAR HEMOGLOBIN 30.8 pg (27.0-33.0); MEAN CORPUSCULAR HGB CONC 32.8 g/dl (32.0-36.5); MEAN CORPUSCULAR VOLUME 93.8 fl (80.0-96.0); MONO # 0.9 10^3/uL (0.0-0.8); NEUTROPHILS # 5.9 10^3/uL (1.8-7.7); NEUTROPHILS % 68.5 % (36.0-66.0); PLATELET COUNT, AUTOMATED 306 10^3/uL (150-450); WHITE BLOOD COUNT 8.6 10^3/uL (4.0-10.0)
--- NOTE | 2019-03-21 22:15 | REPVR ---
EXAM: CT Abdomen and Pelvis Without Contrast EXAM DATE/TIME: 03/21/2019 8:53 PM CLINICAL HISTORY: 68 years old, male; Abdominal pain; Generalized; Prior surgery; Surgery date: <1 month; Surgery type: Colostomy; Additional info: Recent surgery, gi bleeding TECHNIQUE: Imaging protocol: Axial computed tomography images of the abdomen and pelvis without contrast. Coronal and sagittal reformatted images were created and reviewed. Radiation optimization: All CT scans at this facility use at least one of these dose optimization techniques: automated exposure control; mA and/or kV adjustment per patient size (includes targeted exams where dose is matched to clinical indication); or iterative reconstruction. COMPARISON: CT ABD PELVIS W/O CONTRAST 02/28/2019 12:24 PM FINDINGS: Lungs: Bibasilar atelectasis. Pleural space: Bibasilar pleural thickening. Heart: Status post TAVR. ABDOMEN: Liver: Normal. No mass. Gallbladder and bile ducts: There are gallstones present. No CT evidence of cholecystitis demonstrated. Pancreas: There is diffuse pancreatic atrophy. Spleen: Chest opacification lateral aspect of the spleen likely postinflammatory. Adrenals: Normal. No mass. Kidneys and ureters: Bilateral renal cysts measure up to 7.2 cm in the upper pole of the left kidney. 11 mm hyperdense cyst in the posterior interpolar aspect of the right kidney. Stomach and bowel: There is gastric distention with retained secretions. Clinical correlation to exclude gastroparesis or gastric outlet obstruction suggested. Left paracentral colostomy. Inflammatory changes demonstrated due to the colostomy and the anterior abdominal wall. Findings may indicate the presence of cellulitis and infection. Appendix: No evidence of appendicitis. PELVIS: Bladder: Unremarkable as visualized. Reproductive: Status post prostate mild ABDOMEN and PELVIS: Intraperitoneal space: There is a segment of acute inflammation in the proximal sigmoid colon without evidence of a drainable abscess or free air, consistent with acute diverticulitis. Bones/joints: The spine demonstrates moderate degenerative changes. Moderate central spinal stenosis at L2-3, severe central spinal stenosis at L3-4 and moderate to severe central spinal stenosis at L4-5. Status post total right hip replacement. Soft tissues: 7.6 x 6.6 x 8.4 cm air-containing fluid collection in the right paracentral anterior abdominal wall. Second fluid collection demonstrated medially and anteriorly in the abdominal wall adjacent to the mesh. Finding may indicate the presence of an abscess. Status post mesh repair anterior abdominal wall hernia. Vasculature: There is mild atherosclerotic calcification of the coronary arteries. The aorta demonstrates moderate atherosclerotic calcification. Infrarenal normal aortic aneurysm measures 3.2 cm and tapers before the bifurcation. Bilateral ectatic iliac arteries. Lymph nodes: Normal. No enlarged lymph nodes. Other findings: Osteoporosis. IMPRESSION: 1. There are gallstones present. No CT evidence of cholecystitis demonstrated. 2. There is gastric distention with retained secretions. Clinical correlation to exclude gastroparesis or gastric outlet obstruction suggested. 3. There is diffuse pancreatic atrophy. 4. There is a segment of acute inflammation in the proximal sigmoid colon without evidence of a drainable abscess or free air, consistent with acute diverticulitis. 5. 7.6 x 6.6 x 8.4 cm air-containing fluid collection in the right paracentral anterior abdominal wall. Finding may indicate the presence of an abscess. 6. Inflammatory changes demonstrated due to the colostomy and the anterior abdominal wall. Findings may indicate the presence of cellulitis and infection. Electronically signed by: Samm Shaffer On 03/21/2019 22:15:07 PM
[2019-03-21] MEDS ORDERED: NS 500 ML IV ONE (23:15)
[2019-03-22 00:32] LABS: BASO % 0.3 % (0.0-1.0); EOS # 0.2 10^3/uL (0.0-0.50); EOS % 3.4 % (0.0-3.0); HEMATOCRIT 21.8 % (42.0-52.0); HEMOGLOBIN 7.1 g/dl (13.5-17.5); LYMPH # 1.1 10^3/uL (1.5-4.5); MEAN CORPUSCULAR HEMOGLOBIN 30.6 pg (27.0-33.0); MEAN CORPUSCULAR HGB CONC 32.6 g/dl (32.0-36.5); MONO # 0.8 10^3/uL (0.0-0.8); MONO % 10.8 % (0.0-5.0); NEUTROPHILS # 4.9 10^3/uL (1.8-7.7); NEUTROPHILS % 69.1 % (36.0-66.0); PLATELET COUNT, AUTOMATED 251 10^3/uL (150-450); RED BLOOD COUNT 2.32 10^6/uL (4.30-6.10); WHITE BLOOD COUNT 7.1 10^3/uL (4.0-10.0)
[2019-03-22 03:38] VITALS: BP 116/58
== END 2019-03-22 03:41 | disposition short-term general hospital (02) ==
LOC: M ED 19:35
DX: K92.2 Gastrointestinal hemorrhage, unspecified (principal); R19.5 Other fecal abnormalities; Z93.3 Colostomy status; Z87.19 Personal history of other diseases of the digestive system; I25.10 Atherosclerotic heart disease of native coronary artery without angina pectoris; I25.2 Old myocardial infarction; Z95.5 Presence of coronary angioplasty implant and graft; Z79.899 Other long term (current) drug therapy; Z79.82 Long term (current) use of aspirin; Z79.02 Long term (current) use of antithrombotics/antiplatelets

== ENCOUNTER → 2019-04-05 | Outpatient (REF) | payer MEDICARE ==
[~2019-04-05] MED LIST changes: +ASPI81TA85 PO; +FERR325T3 PO
[2019-04-05 15:55] LABS: HEMATOCRIT 27.9 % (42.0-52.0); HEMOGLOBIN 8.7 g/dl (13.5-17.5); MEAN CORPUSCULAR HEMOGLOBIN 30.4 pg (27.0-33.0); MEAN CORPUSCULAR HGB CONC 31.2 g/dl (32.0-36.5); MEAN CORPUSCULAR VOLUME 97.6 fl (80.0-96.0); PLATELET COUNT, AUTOMATED 219 10^3/uL (150-450); RED BLOOD COUNT 2.86 10^6/uL (4.30-6.10); WHITE BLOOD COUNT 5.7 10^3/uL (4.0-10.0)
[2019-04-05 15:58] LABS: ALBUMIN 3.3 GM/DL (3.2-5.2); BILIRUBIN,TOTAL 0.5 MG/DL (0.2-1.0); CALCIUM LEVEL 9.7 MG/DL (8.8-10.2); CREATININE FOR GFR 1.62 MG/DL (0.70-1.30); GLOMERULAR FILTRATION RATE 45.1 (>42); POTASSIUM SERUM 4.8 MEQ/L (3.5-5.1); TOTAL PROTEIN 7.6 GM/DL (6.4-8.2)
== END ==
LOC: M SFHCPLAZ 13:51
PROVIDERS: ATTEND Internal Medicine
DX: D50.0 Iron deficiency anemia secondary to blood loss (chronic) (principal); I12.9 Hypertensive chronic kidney disease with stage 1 through stage 4 chronic kidney disease, or unspecified chronic kidney disease

== ENCOUNTER → 2019-04-12 | Outpatient (CLI) | payer MEDICARE ==
[~2019-04-12] MED LIST changes: -TRAZ-160 PO; +TRAZ-252 PO
[2019-04-12 17:04] LABS: BASO % 0.7 % (0.0-1.0); EOS # 0.2 10^3/uL (0.0-0.50); EOS % 3.4 % (0.0-3.0); HEMATOCRIT 27.2 % (42.0-52.0); HEMOGLOBIN 8.5 g/dl (13.5-17.5); LYMPH # 1.3 10^3/uL (1.5-4.5); LYMPH % 21.6 % (24.0-44.0); MEAN CORPUSCULAR HEMOGLOBIN 29.7 pg (27.0-33.0); MEAN CORPUSCULAR HGB CONC 31.3 g/dl (32.0-36.5); MEAN CORPUSCULAR VOLUME 95.1 fl (80.0-96.0); MONO # 0.6 10^3/uL (0.0-0.8); MONO % 10.9 % (0.0-5.0); NEUTROPHILS # 3.7 10^3/uL (1.8-7.7); NEUTROPHILS % 63.2 % (36.0-66.0); PLATELET COUNT, AUTOMATED 183 10^3/uL (150-450); RED BLOOD COUNT 2.86 10^6/uL (4.30-6.10); WHITE BLOOD COUNT 5.9 10^3/uL (4.0-10.0)
[2019-04-12 17:30] LABS: ALBUMIN 2.9 GM/DL (3.2-5.2); BILIRUBIN,TOTAL 0.6 MG/DL (0.2-1.0); CALCIUM LEVEL 8.7 MG/DL (8.8-10.2); CREATININE FOR GFR 1.59 MG/DL (0.70-1.30); GLOMERULAR FILTRATION RATE 46.1 (>42); POTASSIUM SERUM 4.6 MEQ/L (3.5-5.1); TOTAL PROTEIN 7.3 GM/DL (6.4-8.2)
--- NOTE | 2019-04-12 18:52 | REP ---
ABDOMINAL SERIES: Supine and erect views of the abdomen demonstrate no free air and no evidence of small bowel obstruction. Multiple diverticula are seen filled with barium throughout the left colon. Metallic clips are seen in the left upper quadrant with adjacent midline cerclage wires. There are degenerative changes of the spine. Right hip prosthesis is noted. An ostomy is seen in the left upper abdomen. IMPRESSION: No free air or obstruction. Electronically Signed by Adonay Sifuentes MD 04/13/2019 12:43 P
== END ==
LOC: M LAB 16:02
PROVIDERS: ATTEND Surgery
DX: R10.9 Unspecified abdominal pain (principal); K57.90 Diverticulosis of intestine, part unspecified, without perforation or abscess without bleeding; Z96.641 Presence of right artificial hip joint; Z93.4 Other artificial openings of gastrointestinal tract status

== ENCOUNTER → 2019-04-28 | Outpatient (CLI) | payer MEDICARE ==
[2019-04-28 08:14] LABS: HEMATOCRIT 27.4 % (42.0-52.0); HEMOGLOBIN 8.5 g/dl (13.5-17.5); PLATELET COUNT, AUTOMATED 177 10^3/uL (150-450); RED BLOOD COUNT 2.74 10^6/uL (4.30-6.10); WHITE BLOOD COUNT 4.5 10^3/uL (4.0-10.0)
== END ==
LOC: M LAB 07:44
PROVIDERS: ATTEND Surgery
DX: Z48.89 Encounter for other specified surgical aftercare (principal)

== ENCOUNTER 2019-04-29 10:45 | Outpatient (RCR) | payer MEDICARE | END 2019-05-02 | LOC: M PT 10:45 | PROVIDERS: ATTEND Physician Assistant Surgical | DX: M25.562 Pain in left knee (principal) ==

== ENCOUNTER 2019-05-19 10:43 | Outpatient (RCR) | payer MEDICARE ==
[~2019-05-19 10:43] MED LIST changes: -ROSU10TA5 PO; +ROSU10TA6 PO
== END 2019-06-02 ==
LOC: M PT 10:43
PROVIDERS: ATTEND Physician Assistant Surgical
DX: Z47.89 Encounter for other orthopedic aftercare (principal); M25.562 Pain in left knee

== ENCOUNTER 2019-08-17 09:05 | Outpatient (RCR) | payer MEDICARE ==
[~2019-08-17 09:05] MED LIST changes: +ZETI10TA16 PO; -ZETI10TA30 PO
== END 2019-09-02 ==
LOC: M PT 09:05
PROVIDERS: ATTEND Physician Assistant Surgical
DX: M71.9 Bursopathy, unspecified (principal); M25.559 Pain in unspecified hip; M54.5 Low back pain

== ENCOUNTER 2019-10-11 17:16 | Emergency (ER) | payer MEDICARE ==
[~2019-10-11] VITALS: Ht 177.8 cm; Wt 86.4 kg
[2019-10-11] MEDS ORDERED: SUCR1TA PO (17:36)
[2019-10-11 18:11] LABS: BASO % 0.5 % (0.0-1.0); EOS # 0.2 10^3/uL (0.0-0.5); EOS % 2.6 % (0.0-3.0); HEMATOCRIT 27.1 % (42.0-52.0); HEMOGLOBIN 8.3 g/dl (13.5-17.5); LYMPH # 0.8 10^3/uL (1.5-5.0); LYMPH % 9.8 % (24.0-44.0); MEAN CORPUSCULAR HEMOGLOBIN 29.1 pg (27.0-33.0); MEAN CORPUSCULAR HGB CONC 30.6 g/dl (32.0-36.5); MEAN CORPUSCULAR VOLUME 95.1 fl (80.0-96.0); MONO # 0.8 10^3/uL (0.0-0.8); MONO % 9.4 % (0.0-5.0); NEUTROPHILS # 6.6 10^3/uL (1.5-8.5); PLATELET COUNT, AUTOMATED 330 10^3/uL (150-450); RED BLOOD COUNT 2.85 10^6/uL (4.30-6.10); WHITE BLOOD COUNT 8.6 10^3/uL (4.0-10.0)
--- NOTE | 2019-10-11 18:32 | REP ---
Portable chest x-ray: Single view. History: Dyspnea and cough. Comparison study: February 28, 2019. Findings: The patient is status post median sternotomy and aortic valve replacement. A loop recorder is visible at the left base. EKG monitoring electrodes and oxygen delivery tubing are seen. There is a small left pleural effusion which is a new finding from the February 28, 2019 prior radiograph. Fissural thickening is noted in the minor fissure on the right but the right pleural angle is not blunted. There is however vascular congestion and some interstitial markings are prominent in the bases with Filipe B lines. Impression: CHF pattern with a small left pleural effusion and Filipe B lines along with vascular congestion. Status post prior aortic valve replacement. Electronically Signed by Mario Landon MD 10/11/2019 06:34 P
[2019-10-11 19:02] LABS: CALCIUM LEVEL 9.7 MG/DL (8.8-10.2); CK-MB VALUE MASS 1.8 NG/ML (<3.6); CREATININE FOR GFR 2.56 MG/DL (0.70-1.30); GLOMERULAR FILTRATION RATE 26.5 (>42); MB/CK RELATIVE INDEX 5.62 (< OR =4); TROPONIN I 0.03 NG/ML (< 0.10)
[2019-10-11 20:00] VITALS: BP 115/65
--- NOTE | 2019-10-12 02:41 | ER ---
DATE OF CONSULTATION: 10/11/2019 REFERRING PHYSICIAN: Dr. Jin INDICATION: Shortness of breath. HISTORY OF PRESENT ILLNESS: Mr. Orta is known to me. He is a rather delightful 69-year-old man who has a multitude of medical problems. Most importantly as of lately, he has been struggling with congestive heart failure. I am going to summarize briefly his recent medical history. He underwent reversal of colostomy in [facility] in [place] approximately 6 weeks ago. The procedure led to prolonged and complicated hospital stay. He was found to have a left pleural effusion that was large, and the exudate grew Pseudomonas. He also developed atrial fibrillation with rapid ventricular response, and echocardiogram revealed moderate left ventricular systolic dysfunction with ejection fraction (EF) around 35-40% with severe aortic insufficiency and severe pulmonary hypertension. This lead to performing a transesophageal echocardiogram 09/21/2019 that revealed severe paravalvular aortic insufficiency (as patient is status post aortic valve replacement with transcatheter aortic valve replacement (TAVR)). Cardiac catheterization revealed diffuse severe coronary artery disease with patent saphenous vein graft (SVG) to obtuse marginal that had moderate to severe in-stent restenosis, and he had patent left internal mammary artery (SALAZAR) to distal left anterior descending (LAD) but rather diffuse LAD disease. He completed 8 weeks of antibiotics and was discharged home on Friday; but according to his , he immediately was extremely short of breath. He has been unable to sleep since, and eventually she decided to bring him back to emergency room tonight because patient was in a considerable amount of anxiety and respiratory distress when falling asleep. At bedside, patient appears chronically ill. He appears reasonably comfortable when sitting, and he saturates in the high 90s on 2 liters of oxygen by nasal cannula; but as he is falling asleep, his oxygen saturation immediately drops to mid 80s. He specifically denies any chest discomfort or sensation of palpitations but has been complaining about dyspnea. He says that it is impossible for him to lay flat; and when he tries to fall asleep even in semiupright position, he immediately is waking up because he cannot breathe. PAST MEDICAL HISTORY: 1. Coronary artery disease, status post coronary artery bypass graft (CABG) and redo CABG. 2. History of paroxysmal atrial fibrillation and flutter. 3. History of transaortic valve replacement. 4. Type 2 diabetes. 5. Peripheral vascular disease. 6. Chronic renal insufficiency. 7. History of hemicolectomy due to probably diverticular-related stenosis. 8. Polymyalgia. SURGICAL HISTORY: 1. CABG 1988, redo CABG in 1992. 2. TAVR 2018. 3. Left knee replacement. 4. Right hip replacement. 5. Right shoulder surgery. SOCIAL HISTORY: Patient does not smoke, does not drink. He is , lives with his . HOME MEDICATIONS: - allopurinol 300 mg a day - aspirin 81 mg a day - Coreg 6.25 mg twice a day - Plavix 75 mg a day - Colace - Zetia 10 mg a day - iron sulfate 325 a day - Vascepa 2 grams twice a day - Crestor 10 mg a day - sucralfate 1 gram - coenzyme Q10 ALLERGIES: No known allergies. FAMILY HISTORY: No longer relevant. REVIEW OF SYSTEMS: He denies any fever and chills since he came home. He did not have any diarrhea, nausea, vomiting. His appetite has been reasonably good, even though he still has trouble completing all his meals. Peripheral edema has been stable and chronic. At home, he was walking with a walker. He was unable to walk independently. PHYSICAL EXAMINATION: Elderly man who appears chronically ill. No immediate distress. Blood pressure 112/59. Heart rate between 90 and 110, atrial fibrillation with wide QRS complex. Saturation 97% on 2 liters but dropping into mid 80s as he falls asleep. He is alert and oriented and appropriate. He is able to talk in full sentences. His jugular venous pressure (JVP) is difficult to nurse but does not appear grossly elevated. Lungs are reasonably clear on the right. There are diminished breath sounds at least one-half of the left lung field. Heart exam reveals irregular tachycardia. I do not appreciate any distinct murmur or gallop. Abdomen is soft. There is dressing applied over his wound in the midline. According to his , it has been clean and without discharge. I did not remove it. Extremities have 2+ edema to his knees. There are faint peripheral pulses, probably mostly because of peripheral edema. No trophic defects are noted. Neurologically, there is generalized weakness but is otherwise intact. Electrocardiogram (ECG) reveals presence of atrial fibrillation with underlying left bundle branch block and frequent premature ventricular contractions (PVCs). Complete blood count (CBC) reveals WBC count 8.6, hemoglobin 8.3, hematocrit 27, and platelet count 330,000. Basic metabolic panel: Sodium 136, potassium 4.0, BUN 46, creatinine 2.64, glomerular filtration rate (GFR) 26, glucose 121, CK-MB is 5.6, troponin 0.03, and N-terminal proBNP is elevated at 5500. Chest x-ray reveals cardiomegaly, prior sternotomy, aortic valve replacement, Reveal monitor, in my opinion about moderate left pleural effusion and some congestive heart failure (CHF). ASSESSMENT AND PLAN: Mr. Orta is a 69-year-old man who has a multitude of medical problems that include diffuse and severe coronary artery disease, moderate left ventricular systolic dysfunction, atrial fibrillation, and now severe paravalvular aortic insufficiency. It is unclear whether he may have endocarditis even though, in my opinion, it is far from certain. He now presents with florid heart failure and orthopnea less than 2 days since discharge from [facility] after prolonged hospital stay. He is off diuretics; but in spite of this, his renal function has deteriorated. I am afraid that this indicates that the aortic insufficiency is truly severe and his left ventricle is not able to cope with the load. I spoke with Dr. Magaña, who is his surgeon. We agreed that patient will be transferred to [facility] for further management, which very likely will include aortic valve replacement during current hospitalization. I spoke with the patient and his , and we discussed that this is certainly a very difficult decision but it probably gives him the only reasonable chance for survival even though the risk is certainly very high.
--- NOTE | 2019-10-12 08:11 | ECGEPIP ---
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
== END 2019-10-11 20:09 | disposition short-term general hospital (02) ==
LOC: M ED 17:16
DX: I11.0 Hypertensive heart disease with heart failure (principal); I48.91 Unspecified atrial fibrillation; I44.7 Left bundle-branch block, unspecified; I35.1 Nonrheumatic aortic (valve) insufficiency; I25.10 Atherosclerotic heart disease of native coronary artery without angina pectoris; J91.8 Pleural effusion in other conditions classified elsewhere; E11.9 Type 2 diabetes mellitus without complications; E78.5 Hyperlipidemia, unspecified; Z79.82 Long term (current) use of aspirin; Z79.899 Other long term (current) drug therapy; Z86.79 Personal history of other diseases of the circulatory system; Z95.1 Presence of aortocoronary bypass graft